=== PATIENT | female | born 1960 | race African-American/Black ===

== ENCOUNTER 2019-10-03 10:06 | Emergency (ER) | payer OTHER, SELFPAY ==
[2019-10-03 10:29] VITALS: BP 140/81; PULSE 100; RESP 16; TEMP 36.2; O2SAT 97
--- NOTE | 2019-10-03 10:34 | ED.URI ---
HPI - URI/Sore Throat General Chief Complaint: Ear Stated Complaint: Ear/Nose/Throat Time Seen by Provider: 10/03/19 10:35 Source: patient and RN notes reviewed Mode of arrival: ambulatory Limitations: no limitations History of Present Illness HPI Narrative: 59-year-old female presents with concern for bilateral ear pain, muffled hearing, sinus congestion, sinus drainage, postnasal. She denies fever, cough, shortness of breath, body aches, malaise. Reports she takes daily medications for allergies and sinus congestion, frequently has sinus congestion. Reports current 1 week history of sinus congestion. MD elicited complaint: other (Ear pain) Related Data Home Medications Medication Instructions Recorded Confirmed Advair HFA 10/03/19 albuterol sulfate [Ventolin HFA] 1 puff INHALATION QID 10/03/19 10/03/19 atorvastatin [Lipitor] 10 mg PO DAILY 10/03/19 10/03/19 fluticasone propionate [Flonase 1 spray INTRANASAL DAILY 10/03/19 10/03/19 Allergy Relief] lisinopril-hydrochlorothiazide 1 tablet PO DAILY 10/03/19 10/03/19 [Zestoretic] loratadine-pseudoephedrine 1 tablet PO DAILY 10/03/19 10/03/19 [Claritin-D 24 Hour] montelukast [Singulair] 10 mg PO DAILY 10/03/19 10/03/19 niacin 500 mg PO DAILY 10/03/19 10/03/19 Allergies Allergy/AdvReac Type Severity Reaction Status Date / Time cefprozil Allergy Unknown Verified 08/08/18 11:31 codeine Allergy Unknown Itching Verified 06/20/17 08:07 diphenhydramine Allergy Unknown Hives Verified 06/20/17 08:06 lovastatin Allergy Unknown Verified 08/08/18 11:30 metronidazole Allergy Unknown Unverified 07/21/16 14:45 niacin Allergy Unknown Verified 08/08/18 11:30 ofloxacin Allergy Unknown Verified 07/21/16 14:45 oxaprozin Allergy Unknown Verified 08/08/18 11:29 oxytetracycline Allergy Unknown Verified 08/08/18 11:30 sulfamethizole Allergy Unknown Verified 06/20/17 08:07 tetracycline Allergy Unknown Unverified 07/21/16 14:45 trimethoprim Allergy Unknown Verified 06/20/17 08:07 Review of Systems Review of Systems: Narrative: CONSTITUTIONAL: Denies malaise, chills, sweats, or fever. EYES: Denies visual changes, redness, or discharge. ENT: Reports rhinorrhea, congestion,otalgia. Denies sinus pain or sore throat. CARDIOVASCULAR: Denies chest pain, palpitations, or edema. RESPIRATORY: Denies cough or dyspnea. GASTROINTESTINAL: Denies abdominal pain, nausea, vomiting, diarrhea SKIN: Denies rash or itching. MUSCULOSKELETAL: Denies myalgia. NEUROLOGIC: Denies headache. All systems reviewed & are unremarkable except as noted in HPI and below PMFSH Social History Social History Smoking status: Never smoker Alcohol intake: never Gender identity (if verbalized by the patient): Female Comments At time of signature, agree with nursing past medical, surgical, social and family history. There is no relevant family history pertinent to the presenting complaint Exam Narrative: Exam Narrative: GENERAL: Well-appearing, well-nourished, and in no acute distress. HEAD: Normocephalic EYES: PERRLA, conjunctivae clear ENT: Nares clear, turbinates edematous and erythematous, clear discharge. Mucous membranes moist. TM pearly dominguez with dull light reflex bilaterally; no tragal tenderness. Oropharynx not erythematous without lesions. Tonsils not enlarged and without exudate, no drooling, no hoarseness, no trismus, uvula midline. NECK: Supple. No lymphadenopathy CHEST: Clear to auscultation, breath sounds equal. No wheezing, rhonchi, rales, or stridor. No respiratory distress, speaks in full sentences. HEART: Regular rate and rhythm. No murmur heard. SKIN: Warm, dry, no rash. NEURO: Alert and oriented x3. PSYCH: Normal mood and affect Course Course Emergency Course: Patient is aware of diagnosis, understands and agrees to treatment plan. Anticipatory guidance given. Patient agrees to follow-up as directed and is aware of reasons to seek care at the emergency department. Portions of this r
== END 2019-10-03 10:50 | disposition home or self-care (01) ==
PROVIDERS: Emergency Provider Nurse Practitioner; PCP Emergency Medicine
DX: J30.9 Allergic rhinitis, unspecified (principal)
CPT/HCPCS: 99213; G0463

== ENCOUNTER 2020-03-25 08:04 | Outpatient (CLI) | payer MEDICARE, SELFPAY ==
--- NOTE | ~2020-03-25 | MM_ITS ---
EXAMINATION: MM screening iris BI w meghann HISTORY: Screening TECHNIQUE: Craniocaudal and mediolateral oblique 3-D tomosynthesis images were obtained and synthetic 2-D images were generated. CAD analysis was submitted and interpreted. COMPARISON: Comparison to multiple prior studies sequentially, with oldest reviewed study dated 08/01. BREAST PARENCHYMAL COMPOSITION: The breasts are heterogeneously dense, which may obscure small masses . FINDINGS: There is no evidence of suspicious mass, calcification, or architectural distortion to sugg est malignancy in either breast. There has been no suspicious interval change. IMPRESSION: 1. No mammographic evidence of malignancy. 2. Recommend routine screening mammography in one year. BI-RADS Category 1: Negative Reviewed, dictated and finalized at location A. LAYER
== END 2020-03-25 08:05 | disposition home or self-care (01) ==
LOC: ANHIMG 08:06
PROVIDERS: PCP Emergency Medicine; Visit Provider Emergency Medicine
DX: Z12.31 Encounter for screening mammogram for malignant neoplasm of breast (principal)
CPT/HCPCS: 77063; 77067

== ENCOUNTER 2021-07-23 10:43 | Outpatient (CLI) | payer OTHER, SELFPAY ==
--- NOTE | ~2021-07-23 | XR_ITS ---
XR shoulder RT min 2V DATE: 07/23/2021 11:06 INDICATION: Right shoulder pain and popping when raising shoulder. No injury. TECHNIQUE: 4 views COMPARISON: None FINDINGS: There is calcifications along the upper aspect of the acromioclavicular joint. There is osteophytic spurring of the glenoid process and humeral head at the glenohumeral joint. No fracture, dislocation, periosteal reaction or bone destruction. No abnormal soft tissue calcificat ion of the right shoulder. IMPRESSION: Glenohumeral osteoarthritis Calcifications at the superior aspect of the right acromioclavicular joint Reviewed, dictated and finalized at location B.
== END 2021-07-23 10:44 | disposition home or self-care (01) ==
PROVIDERS: PCP Emergency Medicine; Visit Provider Emergency Medicine
DX: M19.011 Primary osteoarthritis, right shoulder (principal)
CPT/HCPCS: 73030

== ENCOUNTER 2023-03-22 11:50 | Outpatient (CLI) | payer BC, SELFPAY ==
--- NOTE | ~2023-03-22 | XR_ITS ---
XR hip RT 2V w AP pelvis DATE: 03/22/2023 12:10 INDICATION: Right hip pain lateral to groin TECHNIQUE: AP pelvis. AP and lateral views of right hip COMPARISON: None FINDINGS: There is severe right hip joint space narrowing and very prominent right acetabular and fem oral head spurring, consistent with severe osteoarthritis. Hip joint space is obliterated superolater ally. No fracture or dislocation of the right hip is evident. Normal alignment at the pubic symphysis and sacroiliac joints. No pelvic fracture or bone destruction is detected. Mild left hip osteoarthritis. Probable 8 x 10 mm calcified calculus of lower pole of left kidney. IMPRESSION: Severe right hip osteoarthritis Reviewed, dictated and finalized at location B. DER OPERATOR TOOL
== END 2023-03-22 11:51 | disposition home or self-care (01) ==
PROVIDERS: PCP Emergency Medicine; Visit Provider Emergency Medicine
DX: M16.11 Unilateral primary osteoarthritis, right hip (principal)
CPT/HCPCS: 73502

== ENCOUNTER 2023-08-10 09:36 | Outpatient (CLI) | payer BC, SELFPAY ==
--- NOTE | ~2023-08-10 | MM_ITS ---
EXAMINATION: MM screening iris BI w meghann HISTORY: Screening TECHNIQUE: Craniocaudal and mediolateral oblique 3-D tomosynthesis images were obtained and synthetic 2-D images were generated. CAD analysis was submitted and interpreted. COMPARISON: 03/25/2020 BREAST PARENCHYMAL COMPOSITION: The breasts are heterogeneously dense, which may obscure small masses . FINDINGS: There is no evidence of suspicious mass, calcification, or architectural distortion to sugg est malignancy in either breast. There has been no suspicious interval change. IMPRESSION: 1. No mammographic evidence of malignancy. 2. Recommend routine screening mammography in one year. BI-RADS Category 1: Negative Reviewed, dictated and finalized at location B.
== END 2023-08-10 09:37 | disposition home or self-care (01) ==
LOC: ANHIMG 09:37
PROVIDERS: PCP Emergency Medicine; Visit Provider Emergency Medicine
DX: Z12.31 Encounter for screening mammogram for malignant neoplasm of breast (principal)
CPT/HCPCS: 77063; 77067

== ENCOUNTER 2024-06-05 11:55 | Outpatient (CLI) | payer BC, SELFPAY ==
[2024-06-05 12:46] LABS: Alanine Aminotransferase 23 U/L (6-35); Albumin Level 4.6 g/dL (3.5-5.1); Alkaline Phosphatase 91 U/L (38-126); Anion Gap 10 mmol/L (4-12); Aspartate Amino Transferase 29 U/L (14-36); Bilirubin,Total 1.1 mg/dL (0.2-1.3); Blood Urea Nitrogen 15 mg/dL (7-17); Calcium 9.7 mg/dL (8.4-10.2); Carbon Dioxide 31 mmol/L (22-30); Chloride 98 mmol/L (98-107); Estimated Glomerular Filt Rate 51; Glucose 134 mg/dL (65-110); Potassium 3.2 mmol/L (3.4-5.0); Sodium 139 mmol/L (137-145)
[2024-06-05 12:56] LABS: Erythrocyte Sedimentation Rate 43 mm/hr (0-20)
[2024-06-05 13:12] LABS: Thyroid Stimulating Hormone Reflex 0.986 uIU/mL (0.465-4.68)
--- OUTSIDE RECORDS SUMMARY | 2024-06-05 13:16 | XMS_ITS | Clinical Summary ---
Author Organization [facility] Address [address] [place] [address] Care Team Providers Care Brick Tester Name Role Phone Canelo Stallworth MD Primary Care Provider [phone] Allergies Active Allergy Reactions Criticality Noted Date Comments Oxaprozin Hives,Shortness of Breath,Rash,Itching,Naus ea and Vomiting,Swelling High 07/29/2021 Terromycin,advicor, flagyn-floxin, cefprozil-cefzil Medications SYMBICORT 160-4.5 MCG/ACT inhaler INHALE 2 PUFFS BY MOUTH EVERY 12 HOURS 07/22/2021 Active lisinopril-hydro CHLOROthiazide 10-12.5 MG tablet Take 1 tablet by mouth daily. 07/23/2021 Active montelukast 10 MG tablet Take 10 mg by mouth every evening. 07/06/2021 Active Active Problems No known active problems Family History Medical History Relation Comments Asthma Father COPD Father Cancer Father Hypertension Mother Miscarriages / Stillbirths Sister Relation Status Comments Father Mother Sister Social History Tobacco Use Types Packs/Day Years Used Date Smoking Tobacco: Never Smokeless Tobacco: Never Tobacco Cessation:Counseling Given: No Comments:non smoker Alcohol Use Standard Drinks/Week Comments Yes 0 (1 standard drink = 0.6 oz pur e alcohol) social PHQ-2 Answer Date Recorded PHQ-2 Score - If the patient scores above 3, please move on to questions 3-9 0 09/16/2021 Comments Unknown Sex and Gender Information Value Date Recorded Sex Assigned at Not on file Legal Sex Female 4:00 PM CDT Gender Identity Not on file Sexual Orientation Not on file Last Filed Vital Signs Vital Sign Reading Time Taken Comments Blood Pressure 107/67 09/16/2021 9:13 AM CDT Pulse 91 09/16/2021 9:13 AM CDT Temperature - - Respiratory Rate - - Oxygen Saturation - - Inhaled Oxygen Concentration - - Weight 70.3 kg (155 lb) 09/16/2021 9:13 AM CDT Height 157.5 cm (5' 2 ) 09/16/2021 9:13 AM CDT Body Mass Index 28.35 09/16/2021 9:13 AM CDT Plan of Treatment Health Maintenance Due Date Last Done Comments Cervical Cancer Screening Pap Smear (Age 30 to 64) Every 3 Years 1960 Colorectal Cancer Screening Colonoscopy (10 Years) 1960 Annual Physical 07/16/1963 Hepatitis C 1978 DTaP, Tdap and Td Vaccines (1 - Tdap) 07/16/1979 Cervical Cancer Screening Pap with HPV Testing (Age 30 to 64) Every 5 Years 1990 Cervical Cancer Screening with HPV 1990 Mammogram Screening 2000 COVID-19 Vaccine (2023- season) 2023 03/03/2021, 07/08/2020, 06/17/2020 Influenza Adult (#1) 2023 12/31/2020, 01/01/2020, 12/05/2018, Additional history exists RSV Immunization or 60+ Years (1 - 1-dose 75+ series) 07/16/2035 Pneumococcal Vaccine: Pediatrics (0 to 5 Years) and At-Risk Patients (6 to 64 Years) Aged Out 12/21/2016 No longer eligible based on patient's age to complete this topic Zoster Vaccines Completed 05/26/2021, 03/23/2021 Meningococcal B Vaccine Aged Out No l onger eligible based on patient's age to complete this topic Meningococcal Vaccine Aged Out No mabel ashtyn eligible based on patient's age to complete this topic RSV Immunizations Under 20 Months Aged Out No longer eligible based on patient's age to complete this topic Insurance U[employer] Care Teams Brick Tester Relationship Specialty Start Date End Date Canelo Stallworth MD [address] [place] [address] PCP - General INTERNAL MEDICINE 07/08/21
== END 2024-06-05 11:56 | disposition home or self-care (01) ==
LOC: ANHLAB 11:56
PROVIDERS: PCP Emergency Medicine; Visit Provider Nurse Practitioner
DX: R63.4 Abnormal weight loss (principal); R19.4 Change in bowel habit; R19.7 Diarrhea, unspecified; R10.9 Unspecified abdominal pain; K62.5 Hemorrhage of anus and rectum
CPT/HCPCS: 36415; 80053; 82784; 83516; 84443; 85652; 86140

== ENCOUNTER 2024-06-05 14:29 | Outpatient (CLI) | payer BC, SELFPAY ==
[2024-06-05 15:41] LABS: Toxigenic C. Diff NEGATIVE (NEGATIVE)
--- OUTSIDE RECORDS SUMMARY | 2024-06-05 15:45 | XMS_ITS | Clinical Summary ---
Author Organization [facility] Address [address] [place] [address] Care Team Providers Care Consumer Affairs Specialist Name Role Phone Canelo Stallworth MD Primary Care Provider [phone] Allergies Active Allergy Reactions Criticality Noted Date [...] complete this topic Insurance [employer] Care Teams Consumer Affairs Specialist Relationship Specialty Start Date End Date Canelo Stallworth MD [address] [place] [address] PCP - General INTERNAL MEDICINE 07/08/21
== END 2024-06-05 14:30 | disposition home or self-care (01) ==
LOC: ANHLAB 14:30
PROVIDERS: PCP Emergency Medicine; Visit Provider Nurse Practitioner
DX: R63.4 Abnormal weight loss (principal); R19.4 Change in bowel habit; R19.7 Diarrhea, unspecified; R10.9 Unspecified abdominal pain; K62.5 Hemorrhage of anus and rectum
CPT/HCPCS: 83993; 87045; 87269; 87427; 87449; 87493

== ENCOUNTER 2024-06-06 12:36 | Inpatient (IN) | payer BC, SELFPAY ==
[2024-06-06] VITALS (19 sets, daily range): BP systolic 103–133; BP diastolic 57–74; PULSE 94–127; RESP 10–19; TEMP 36.6–37.1; O2SAT 96–100; BMI 22.5
--- NOTE | ~2024-06-06 | CT_ITS ---
CT abdomen pelvis w con Ordering provider: Carlos Enrique Woody MD History: 63 years Female with . colitis eval . Comparison: None. Technique: CT abdomen and pelvis with IV and without oral contrast. Automated exposure control and it erative reconstruction technique were employed. The dose-length product was 184.67 mGy-cm. 100 mL Omn ipaque 350 was given IV. Findings: VISUALIZED LOWER CHEST: Normal. UPPER ABDOMINAL ORGANS: Liver: Normal. Gallbladder: Normal. Spleen: Normal. Stomach/duodenum: Small sliding hiatus hernia. Pancreas: Normal. Adrenals: Normal. Kidneys: 2Stones seen in the left kidney lower pole measuring 6 mm and 5 mm. Tiny cyst in the left ki dney upper pole. Tiny stone in the right kidney upper pole. PELVIC ORGANS: The bladder is underfilled. BOWEL AND MESENTERY: Colon: Soft tissue density is seen in the rectosigmoid area which raises the possibility of a mass. T his measures 2 cm. Thickened wall involving the rectosigmoid area and with minimal surrounding fat st randing which is suggestive of colitis. The colon is loaded with fecal material. Slightly dilated col on is noted with the caliber measuring 5.7 cm.. The appendix is not well demonstrated. Slightly dilat ed structure is seen adjacent to the cecum which may be the appendix and measures 11 mm. No surroundi ng fat stranding seen. Small Bowel: No obstruction. Peritoneum/mesentery: No free air or free fluid. No mesenteric lymphadenopathy. RETROPERITONEUM: Mild atheromatous disease of the abdominal aorta. No retroperitoneal lymphadenopat hy. Lymph node is seen near to the bifurcation of the aorta measuring 1.2 cm. MUSCULOSKELETAL: Superficial soft tissues: The superficial soft tissues are normal. Bones: Age appropriate degenerative changes of the spine. Severe right hip osteoarthritic changes. IMPRESSION: 1. Highly suggestive soft tissue density seen in the rectosigmoid area. 2. Thickened wall of the rectosigmoid with minimal fat stranding suggestive of colitis. Colonoscopy advised. 3. Constipation. 4. Stones in the left kidney lower pole Reviewed, dictated and finalized at location A.
--- NOTE | ~2024-06-06 | CT_ITS ---
CT diagnostic chest w con Ordering provider: Marbin Joshi MD History: 63 years Female with . r/o metastases . Comparison: None. Technique: CT chest with IV contrast. Radiation reduction technique utilized.The dose-length product was 111.75 mGy-cm. 75 mL Omnipaque 350 was given IV. Findings: VISUALIZED THORACIC INLET: Normal. MEDIASTINUM: Aorta/coronary arteries: The thoracic aorta is normal. Heart/other: The heart is not enlarged. Lymph nodes: No mediastinal or hilar adenopathy. LUNGS: Bilateral basal atelectasis versus pneumonia more on the right side.. No pulmonary nodules or masses. . No pneumothorax. Trace of effusion seen on the right side. VISUALIZED UPPER ABDOMEN: Slidin g hiatus hernia. Minimal fluid around the spleen. Otherwise, the visualized upper abdomen is normal. MUSCULOSKELETAL: Soft tissues: The superficial soft tissues are normal. Bones: Age appropriate degenerative changes of the spine. IMPRESSION: Bilateral basal atelectasis versus pneumonia more on the right side. No definite metastatic lesions seen. Minimal fluid around the spleen. Clinical correlation advised. Reviewed, dictated and finalized at location A.
--- NOTE | ~2024-06-06 | CT_ITS ---
CT abdomen pelvis wo con Ordering provider: Marbin Joshi MD History: 63 years Female with . rule out pneumoperitoneum . Comparison: June 06, 2024 Technique: CT abdomen and pelvis with IV and without oral contrast. Automated exposure control and it erative reconstruction technique were employed. The dose-length product was 221.78 mGy-cm. 75 mL Omni paque 350 was given IV. Findings: VISUALIZED LOWER CHEST: Bilateral basal atelectasis versus pneumonia. UPPER ABDOMINAL ORGANS: Liver: Normal. Gallbladder: Normal. Spleen: Normal. Stomach/duodenum: Normal. Pancreas: Normal. Adrenals: Normal. Kidneys: Stone in the right kidney upper pole. 2 stones in the left kidney lower pole. PELVIC ORGANS: The bladder is normal. BOWEL AND MESENTERY: Colon: Thickened wall of the rectosigmoid with surrounding fat stranding is again demonstrated sugges tive of colitis. Dilated large bowel which lowers the fecal material is seen. Appendix is not demonst rated. Small Bowel: Normal. No obstruction. Peritoneum/mesentery: No free air. Minimal fluid seen in the presacral area.. No mesenteric lymphaden opathy. RETROPERITONEUM: Mild atheromatous disease of the abdominal aorta. No retroperitoneal lymphadenopat hy. MUSCULOSKELETAL: Superficial soft tissues: Small bilateral inguinal hernias seen unchanged. The superficial soft tissu es are normal. Bones: Age appropriate degenerative changes of the spine. Severe right hip osteoarthritic changes. IMPRESSION: 1. Thickened wall of the rectosigmoid colon suggestive of colitis. No significant change from previo us examination. No evidence of pneumoperitoneum seen. 2. Constipation 3. Bilateral kidney stones. Reviewed, dictated and finalized at location A. IMPRESSION: 1. Thickened wall of the rectosigmoid colon suggestive of colitis. No signific ant change from previous examination. No evidence of pneumoperitoneum seen. 2. Constipation 3. Bilateral kidney stones.
--- NOTE | ~2024-06-06 | XR_ITS ---
EXAMINATION: XR chest 2V DATE: 06/06/2024 14:33 INDICATION: Weakness. TECHNIQUE: Frontal and lateral views of the chest were obtained. COMPARISON: Chest 2 views 07/24/15 FINDINGS: There is no pneumonia, pleural effusion, or pneumothorax. The heart size is normal. IMPRESSION: 1. No acute cardiopulmonary disease. Reviewed, dictated and finalized at location A.
--- NOTE | ~2024-06-06 | MR_ITS ---
EXAMINATION: MR pelvis wo/w con DATE: 06/08/2024 10:43 INDICATION: Rectal mass. TECHNIQUE: Magnetic resonance imaging (MRI) of the pelvis was performed without and with 11 mL ProHan ce intravenous contrast. COMPARISON: CT abdomen and pelvis 06/07/2024, 06/06/2024 FINDINGS: The colon is distended. In the rectum, there is a 6.0 x 4.0 cm mass that extends anteriorly to abut t he uterus and right ovary. There is nodular thickening of the mesorectal fascia. The inferior edge of the tumor measures 7.2 cm from the anal verge. There is a 9 x 6 mm perirectal lymph node. There is a small volume of ascites. There is ascites in a right inguinal hernia. There are multiple fibroids in uterus measuring up to 15 mm. IMPRESSION: 1. Rectal mass, consistent with primary malignancy, at least T4a. 2. Enlarged perirectal lymph node, consistent with metastatic disease. 3. Small volume of ascites. 4. Colonic obstruction from the rectal mass. Reviewed, dictated and finalized at location A.
--- OUTSIDE RECORDS SUMMARY | 2024-06-06 13:19 | XMS_ITS | Clinical Summary ---
Author Organization [facility] Address [address] [place] [address] Care Team Providers Care Air Battle Manager Name Role Phone Canelo Stallworth MD Primary Care Provider [phone] Allergies Active Allergy Reactions Criticality Noted Date [...] complete this topic Insurance [employer] Care Teams Air Battle Manager Relationship Specialty Start Date End Date Canelo Stallworth MD [address] [place] [address] PCP - General INTERNAL MEDICINE 07/08/21
--- NOTE | 2024-06-06 14:05 | ECG_ITS ---
Test Date: 2024-06-06 14:10:25 Measurements Intervals Bitely Rate: 105 P: 79 MO: 145 QRS: 59 QRSD: 76 T: 69 QT: 321 QTc: 424 Interpretive Statements SINUS TACHYCARDIA POSSIBLE LEFT ATRIAL ENLARGEMENT [-0.1mV P-WAVE IN V1/V2] ABNORMAL RHYTHM ECG No previous ECG available for comparison Electronically Signed On 06-06-2024 14:43:05 CDT by Jose Munson M.D.
[2024-06-06 14:22] LABS: Basophils Percent Auto 0.3 % (0.2-1.2); Hematocrit 43.5 % (37.0-47.0); Immature Granulocyte Absolute 0.05 K/mm3 (0.00-0.031); Immature Granulocyte Percent A 0.4 % (0-0.5); Lymphocytes Absolute Auto 0.81 K/mm3 (0.9-3.2); Lymphocytes Percent Auto 6.1 % (18.3-44.2); Mean Corpuscular HGB Conc 32.2 g/dl (32-36); Mean Corpuscular Hemoglobin 30.4 pg (26-34); Mean Corpuscular Volume 94.6 fl (80-100); Monocytes Absolute Auto 1.4 K/mm3 (0.1-0.6); Monocytes Percent Auto 10.6 % (2.6-8.5); Neutrophils Percent Auto 82.6 % (45.5-73.1); Platelet Count Result 478 k/mm3 (150-375); Red Cell Distribution Width 12.8 % (11.5-14.5); White Blood Count 13.3 K/mm3 (4.5-10.0)
[2024-06-06 14:39] LABS: Alanine Aminotransferase 22 U/L (6-35); Albumin Level 4.5 g/dL (3.5-5.1); Alkaline Phosphatase 94 U/L (38-126); Anion Gap 17 mmol/L (4-12); Aspartate Amino Transferase 24 U/L (14-36); Bilirubin,Total 1.1 mg/dL (0.2-1.3); Blood Urea Nitrogen 32 mg/dL (7-17); Calcium 9.6 mg/dL (8.4-10.2); Carbon Dioxide 25 mmol/L (22-30); Chloride 98 mmol/L (98-107); Estimated CRCL calculation 29 ml/min; Estimated Glomerular Filt Rate 38; Glucose 170 mg/dL (65-110); Potassium 3.7 mmol/L (3.4-5.0); Sodium 140 mmol/L (137-145)
[2024-06-06] MEDS: LACTATED RINGERS 1,000 ML 999 ML IV CONT ×2 (15:02→16:33)
[2024-06-06 16:02] LABS: Add Urine Microscopic? YES; Appearance Urine Clear (Clear); Bacteria Urine None Seen /hpf; Bilirubin Urine 2+ (Negative); Blood Urine Negative (Negative); Color Urine Dark Yellow (Yellow); Glucose Urine UA Negative (Negative); Ketones Urine Negative (Negative); Leukocyte Esterase Ur Negative LEU/UL (Negative); Nitrate Urine Negative (Negative); Non Pathogenic Casts 0-2; Protein Urine Trace mg/dL (Negative); RBC Urine 0-2 /hpf (0-2); Specific Grav Ur > 1.045 (1.001-1.035); Squamous Epithelial Cell Urine Occasional /hpf (Few); WBC Urine 0-5 /hpf (0-3); pH Urine 5.5 (5.0-9.0)
--- OUTSIDE RECORDS SUMMARY | 2024-06-06 16:13 | XMS_ITS | Continuity of Care Document ---
Author Organization [facility] Address [address] [place] [address] [place] [phone] Phone Care Team Providers Care Patent Litigation Associate Name Role Phone Cain Morel Unavailable Unavailable Procedures Procedure Date Therapeutic Activities Therapeutic Exercise Hot or Cold Pack Neuromuscular Re-Ed Therapeutic Activities Progress Note Neuromuscular Re-Ed Therapeutic Exercise Hot or Cold Pack Neuromuscular Re-Ed Therapeutic Activities Therapeutic Exercise Manual Therapy Hot or Cold Pack Therapeutic Activities Neuromuscular Re-Ed Therapeutic Exercise Hot or Cold Pack Therapeutic Activities Therapeutic Exercise Neuromuscular Re-Ed Hot or Cold Pack Therapeutic Activities Neuromuscular Re-Ed Hot or Cold Pack Therapeutic Exercise Therapeutic Exercise Neuromuscular Re-Ed Therapeutic Activities Hot or Cold Pack Manual Therapy Therapeutic Activities Neuromuscular Re-Ed Therapeutic Exercise Hot or Cold Pack Therapeutic Activities Therapeutic Exercise Neuromuscular Re-Ed Hot or Cold Pack Neuromuscular Re-Ed Therapeutic Activities Hot or Cold Pack OT Evaluation Low Complexity Therapeutic Activities Therapeutic Exercise Neuromuscular Re-Ed Hot or Cold Pack Advance Directives Directive Yes / No Effective Date File Name No Information Encounters Encounter Description Practice Location Reason(s) For Visit Diagnoses Date Provider Providers Copied on Encounter [facility], [id number], tel:[phone] [place] No Information 2 Talavera Cain. . [facility], [id number], tel:[phone] [place] No Information 2 Talavera Cain. . Referring Provider: [place], [address]. tel:[phone] [facility], [id number], tel:[phone] [place] No Information 2 Talavera Cain. . Referring Provider: [place], [address]. tel:[phone] [facility] [address], [id number], tel:[phone] [place] No Information 2 Talavera Cain. . Referring Provider: [place], [address]. tel:[phone] [facility], [id number], tel:[phone] [place] No Information 2 Talavera Cain. . Referring Provider: [place], [address]. tel:[phone] [facility] [address] [facility], [place], [place], [id number], [place] tel:[phone] [place] [address] No Information Ted-2 0-202 2 Talavera Cain. . Referring Provider: Clarita Zamorano, [place], [address]. tel:[phone] [facility], [place], [place], [id number], [place] tel:[phone] [place] [address] No Information Ted-1 5-202 2 Talavera Cain. . Referring Provider: Clarita Zamorano, [place], [address]. tel:[phone] [facility] [address] [address], [place], [place], [id number], [place] tel:[phone] [place] [address] No Information Ted-1 3-202 2 Talavera Cain. . Referring Provider: Clarita Zamorano, [place], [address]. tel:[phone] [facility] [address] [facility], [place], [place], [id number], [place] tel:[phone] [place] No Information Ted-0 8-202 2 Talavera Cain. . Referring Provider: Clarita Zamorano, [place], [address]. tel:[phone] [facility] [address], [place], [place], [id number], [place] tel:[phone] [place] No Information Ted-0 6-202 2 Talavera Cain. . Referring Provider: [place], [address]. tel:[phone] [facility], [place], [place], [id number], [place] tel:[phone] [place] No Information Ted-0 1-202 2 Ilan Barlow. . Referring Provider: Jeremie Connolly, [place], [address]. tel:[phone] [facility] [place], [address] [facility] [address], [place], [place], [id number], tel:[phone] [place] No Information 2 Ilan Barlow. . Referring Provider: [place], [address]. tel:[phone] Family History Family Member Type Diagnosis Age At Onset No Information Payers Payer name Insurance type Covered republican ID Brandon palomares(s) All Savers [id number] Social History Type Description Quantity Date Captured Comments Sex Female Smoking Status No Information Chief Complaint And Reason For Visit No Information Reason For Referral Reason For Referral No Information History Of Present Illness Encounter Date Complaint History Of Prese nt Illness No Information Functional Status Date Functional Assessmen t No Information Instructions Date Instruction Additional Infor huaion Prescribed activity/exercise edu cation Related to Overweight Dietary needs education Related to Overweight Assessments Type Assessment Date No Information Patient Care Teams Name Effective Dates (start - stop) Status Members No Information
--- OUTSIDE RECORDS SUMMARY | 2024-06-06 16:13 | XMS_ITS | Clinical Summary ---
Author Organization [facility] Address [address] [place] [address] Care Team Providers Care Pit Worker Power Shovel Name Role Phone Canelo Stallworth MD Primary Care Provider [phone] Allergies Active Allergy Reactions Criticality Noted Date [...] complete this topic Insurance [employer] Care Teams Pit Worker Power Shovel Relationship Specialty Start Date End Date Canelo Stallworth MD [address] [place] [address] PCP - General INTERNAL MEDICINE 07/08/21
[2024-06-06] MEDS: ONDANSETRON INJ 4 MG/2 ML VIAL IV PUSH (16:14)
[2024-06-06] MEDS: MORPHINE SULFATE (*CRX) 4 MG/ML INJ IV PUSH ×2 (16:15→20:21)
--- NOTE | 2024-06-06 16:19 | ED.WEAKNESS ---
HPI - Weakness General Chief complaint: Weakness Stated complaint: weakness Time Seen by Provider: 06/06/24 14:44 History of Present Illness HPI Narrative: 63-year-old female presenting to the emergency department for evaluation of abdominal pain, abdominal cramping, diarrhea. She was seen by her GI specialist yesterday and prescribed azithromycin for suspected colitis. She was told to return to the hospital if she has any worsening symptoms and came to the ER today. She states she has been nauseous in feeling worsening abdominal cramping. Focally in her left lower quadrant. No recent abdominal surgeries. She has a history of colitis in childhood which resolved with brief steroids. No history of ulcer colitis or IBD according to her. She was otherwise in her normal state of health. No chest pain shortness a breath. No fever chills. No back pain. Related Data Allergies Allergy/AdvReac Type Severity Reaction Status Date / Time cefprozil Allergy Unknown unknown Verified 06/05/24 10:56 codeine Allergy Unknown Itching Verified 06/05/24 10:56 diphenhydramine Allergy Unknown Hives Verified 06/05/24 10:56 lovastatin Allergy Unknown unknown Verified 06/05/24 10:56 metronidazole Allergy Unknown unknown Verified 06/05/24 10:56 niacin Allergy Unknown unknown Verified 06/05/24 10:56 ofloxacin Allergy Unknown unknown Verified 06/05/24 10:56 oxaprozin Allergy Unknown unknown Verified 06/05/24 10:56 oxytetracycline Allergy Unknown unknown Verified 06/05/24 10:56 sulfamethizole Allergy Unknown unknown Verified 06/05/24 10:56 tetracycline Allergy Unknown unknown Verified 06/05/24 10:56 trimethoprim Allergy Unknown unknown Verified 06/05/24 10:56 Review of Systems Review of Systems: As reviewed above in HPI [facility] Past Medical History Medical History Uncomplicated asthma Sprain of left ankle Seasonal allergic rhinitis Left otitis media Fatigue Acute sinusitis Dysuria Vitamin D deficiency URI, acute 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 Mild intermittent asthma without complication History of colon polyps Earache on left Bronchitis Benign essential hypertension Abnormal LFTs Acute right hip pain Sinusitis UTI (urinary tract infection) Dysuria Shoulder pain URI with cough and congestion HTN (hypertension) Family History Family History Father Hypertension Family history of chronic obstructive pulmonary disease Colon polyp Family history of heart disease in male family member before age 55 Family history of cardiovascular disease Mother Hypertension Patient's mother is in good health Grandparent Hypertension Social History Social History Smoking status: Never smoker Alcohol intake: never Substance use: never Do You Feel Safe in your Home?: Yes Lack of Transportation: No Lack of Food: Never True Current Housing: I Have Housing Concerned About Future Housing: No Difficulty Paying Gas/Electric Bills: No Difficulty Paying for Meds: No Currently Unemployed: No Education: Associate Degree Difficulty w/ Childcare or Family Care: No Gender identity (if verbalized by the patient): Female Spiritual care concerns: No Exam Narrative: GENERAL: [Well-appearing, well-nourished, and in no acute distress.] HEAD: [Normocephalic, atraumatic.] EYES: [PERRLA and EOMI.] ENT: Nares clear, no rhinorrhea or epistaxis. Mucous membranes moist. NECK: Supple. CHEST: [Clear to auscultation. No respiratory distress.] HEART: [Regular rate and rhythm]. No murmur heard. [Normal peripheral pulses.] ABDOMEN: [Soft, nondistended], tenderness to palpation more localized to left lower quadrant. No rebound or guarding, no signs of peritonitis, no overlying skin changes or palpable masses. EXTREMITIES: Normal range of motion. [No edema.] SKIN: Warm, dry, no rash. NEURO: [No focal deficits]. Alert and oriented [x3.] PSYCH: [Normal mood and affect.] Course Vital Signs Vital signs: Vital Signs Temperature 36.6 C 06/06/24 13:00 Pulse Rate 127 H 06/06/24 13:00 Respiratory Rate 18 06/06/24 13:00 Blood Pressure 103/74 06/06/24 13:00 Pulse Oximetry 98 06/06/24 13:00 Oxygen Delivery Room Air 06/06/24 13:00 Temperature 37.1 C 06/06/24 19:50 Pulse Rate 105 H 06/06/24 19:50 Respiratory Rate 17 06/06/24 19:50 Blood Pressure 125/60 06/06/24 19:50 Pulse Oximetry 100 06/06/24 19:50 Oxygen Delivery Room Air 06/06/24 13:00 MDM - Weakness MDM Narrative Medical decision making narrative: 63-year-old female presenting for evaluation of abdominal pain with diarrhea and abdominal cramping. She reports nauseousness. She was seen by GI yesterday with instructions to complete a course of antibiotics for suspected colitis potentially inflammation versus infection. She has a history of colitis in childhood 18 19 that was resolved with anti-inflammatory control but she has no diagnosed history of UC or inflammatory bowel disease. She has a soft nondistended abdomen but is tender to palpation in the lower quadrants more so on the left side. She is slightly tachycardic but does appear slightly dry. No fever or hypoxia. No significant blood pressure elevations or hypotension. Suspicion presently is for gastroenteritis, gastritis, colitis, cancerous process not excluded. Inflammatory process such as inflammatory bowel disease also possible. Blood work was obtained, lactic acid drawn, CT of the abdomen pelvis with contrast ordered. She was given fluid resuscitation, Zofran and morphine for analgesia. Workup reveals a leukocytosis of 13.3, normal hemoglobin, slightly elevated platelets. Electrolytes largely unremarkable but she does have a minor OCTAVIO with elevated BUN and creatinine likely from dehydration and diarrheal illness with volume loss. She was provided fluid resuscitation for this. Negative lactic acid, glucose mildly elevated but not significant. Normal LFTs. Urinalysis without signs of infection. Patient had stool cultures and stool studies done yesterday negative C difficile panel. Chest x-ray shows no acute cardiopulmonary disease. CT scan shows thickened wall in the rectosigmoid area with fat stranding suggestive of colitis as well as a soft tissue density in the rectosigmoid area suspicious for mass. Colonoscopy advised. I discussed the case with the on-call GI doctor Madelyn who will evaluate the patient during admission for suspected mass and colitis and potential colonoscopy during admission. Patient was given additional fluids and safe for admission at this time. Discussed this with the patient and family and they were comfortable with admission. Awaiting hospitalist discussion at this time. Spoke to the hospitalist who accepted the patient to a hospital bed at this time with office rep given her elevated heart rate. Patient and family updated. Medical Records Attestation: I reviewed the patient's medical records. Lab Data Attestation: I reviewed the patient's lab results. 06/06/24 14:14 06/06/24 14:14 Labs: Lab Results 06/06/24 06/06/24 06/06/24 Range/Units 14:14 15:34 15:50 WBC 13.3 H (4.5-10.0) K/mm3 RBC 4.60 (4.2-5.4) M/mm3 Hgb 14.0 (12.0-15.0) g/dL Hct 43.5 (37.0-47.0) % MCV 94.6 (80-100) fl MCH 30.4 (26-34) pg MCHC 32.2 (32-36) g/dl RDW 12.8 (11.5-14.5) % Plt Count 478 H (150-375) k/mm3 MPV 9.0 (7.4-10.4) fl Immature Gran % (Auto) 0.4 (0-0.5) % Neut % (Auto) 82.6 H (45.5-73.1) % Lymph % (Auto) 6.1 L (18.3-44.2) % [place] % (Auto) 10.6 H (2.6-8.5) % Eos % (Auto) 0.0 (0-4.4) % Baso % (Auto) 0.3 (0.2-1.2) % Lymph # (Auto) 0.81 L (0.9-3.2) K/mm3 [place] # (Auto) 1.4 H (0.1-0.6) K/mm3 Eos # (Auto) 0.0 (0-0.3) K/mm3 Baso # (Auto) 0.0 (0.0-0.1) K/mm3 Abs Immat Gran (auto) 0.05 H (0.00-0.031) K/mm3 Absolute Neuts (auto) 11.0 H (1.3-6.7) K/mm3 Absolute Nucleated RBC 0.000 (0.0-0.012) K/mm3 Nucleated RBC % 0.0 (0.0-0.2) % Sodium 140 (137-145) mmol/L Potassium 3.7 (3.4-5.0) mmol/L Chloride 98 (98-107) mmol/L Carbon Dioxide 25 (22-30) mmol/L Anion Gap 17 H (4-12) mmol/L BUN 32 H D (7-17) mg/dL Creatinine 1.40 H (0.7-1.0) mg/dL Estim Creat Clear Calc 29 ml/min Estimated GFR 38 L (59 - ) Glucose 170 H (65-110) mg/dL Lactic Acid 2.0 (0.7-2.0) mmol/L Calcium 9.6 (8.4-10.2) mg/dL Total Bilirubin 1.1 (0.2-1.3) mg/dL AST 24 (14-36) U/L ALT 22 (6-35) U/L Alkaline Phosphatase 94 (38-126) U/L Total Protein 8.0 (6.3-8.2) g/dL Albumin 4.5 (3.5-5.1) g/dL Urine Color Dark yellow (Yellow) Urine Appearance Clear (Clear) Urine pH 5.5 (5.0-9.0) Ur Specific [place] > 1.045 H (1.001-1.035) Urine Protein Trace (Negative) mg/dL Urine Glucose (UA) Negative (Negative) mg/dL Urine Ketones Negative (Negative) mg/dL Ur Blood (Man) Negative (Negative) Urine Nitrate Negative (Negative) Urine Bilirubin 2+ H (Negative) Urine Urobilinogen 1.0 (<2.0) mg/dL Leukocyte Esterase Rfl Negative (Negative) RAMY/UL Urine RBC 0-2 (0-2) /hpf Urine WBC 0-5 (0-3) /hpf Ur Squamous Epith Cells Occasional (Few) /hpf Urine Bacteria None seen /hpf Urine Casts 0-2 Imaging Data Attestation: I personally reviewed and interpreted this imaging study as follows: My impression: Impressions Chest X-Ray 06/06/24 14:34 IMPRESSION: 1. No acute cardiopulmonary disease. Abdomen/Pelvis CT 06/06/24 15:17 IMPRESSION: 1. Highly suggestive soft tissue density seen in the rectosigmoid area. 2. Thickened wall of the rectosigmoid with minimal fat stranding suggestive of colitis. Colonoscopy advised. 3. Constipation. 4. Stones in the left kidney lower pole Critical Care Time Critical Care Time Critical Care Time: Yes Total Critical Care Time: 35 Discharge Plan Discharge Clinical Impression: Colitis, Colon abnormality, Diarrhea, Dehydration Patient Disposition: Still a Patient Condition: Stable
--- NOTE | 2024-06-06 18:13 | ADMGEN ---
This patient, Whit Noe, was admitted to Medical Room 243-01. Patient/family oriented to hospital policies and general routines including ID bracelet, bed and alarms, visiting hours, pain management, procedures, bathroom and other care routines, personal items, smoking policy, room service/diet, and visiting hours. Information on how to activate the Rapid Response Team has been discussed. Patient/Family are encouraged to report perceived risks to care and to ask questions if they do not understand what they are told or what they should do.
[2024-06-06] MEDS: LACTATED RINGERS 1,000 ML 125 ML IV CONT (18:38)
--- NOTE | 2024-06-06 18:56 | P.HP_ITS ---
H&P: HPI History of Present Illness Date/Time: 06/06/24 18:56 Chief Complaint: Weakness, N/V Narrative: 63 y/o F with no significant PMH presents here with generalized weakness, nausea, vomiting, and weight loss. The patient presents here from home for further evaluation of generalized weakness, abdominal pain, nausea, vomiting, and weight loss. She reports she initially developed lower abdominal pain in Feb. Pain was crampy and she thought this was indicative that she needed to go to the restroom but would be unable to. She began having semi formed stools around similar time. March the patient saw her PCP who diagnosed her with gastroenteritis. Patient then began losing weight starting mid March. Currently has lost a total of 20 lbs. Then in April she developed light red mucus like stool, more of a liquid consistency and stool had flecks of black. PCP then referred her to GI who she was able to see yesterday. Lab work and stool studies were performed and patient had planned outpatient CT for early June. Now presenting today due to the severity of her weakness and the abdominal pain had become more severe. She was unable to get out of bed or get to work. Last colonoscopy in 2019 - two polyps removed, benign. She was told to repeat in 5 years. FH of cancer - mother had uterine cancer. Initial VS at presentation: 97.9 ? F, HR 127, RR 18, 103/74, and 98% on room air ED workup showed: WBC 13.3, no anemia, creatinine 1.4 and GFR 38, UA showed high specific gravity and 2+ bilirubin. CXR showed no acute cardiopulmonary disease. CT abdomen/pelvis showed highly suggest a soft tissue density seen in the rectosigmoid area, thickened wall the rectosigmoid with minimal fat stranding suggestive of colitis, constipation, stones in the left kidney lower pole. Review of Systems Review of Systems: All systems reviewed & are unremarkable except as noted in HPI and below [facility] Past Medical History Medical History (Updated 06/06/24 @ 23:29 by Lu Watts APRN) Uncomplicated asthma Sprain of left ankle Seasonal allergic rhinitis Fatigue Vitamin D deficiency Skin tag On retirement drug therapy Mild intermittent asthma without complication History of colon polyps Bronchitis Abnormal LFTs UTI (urinary tract infection) Shoulder pain HTN (hypertension) Family History Family History Father Hypertension Family history of chronic obstructive pulmonary disease Colon polyp Family history of heart disease in male family member before age 55 Family history of cardiovascular disease Mother Hypertension Patient's mother is in good health Grandparent Hypertension Social History Social History Smoking status: Never smoker Alcohol intake: never Substance use: never Do You Feel Safe in your Home?: Yes Lack of Transportation: No Lack of Food: Never True Current Housing: I Have Housing Concerned About Future Housing: No Difficulty Paying Gas/Electric Bills: No Difficulty Paying for Meds: No Currently Unemployed: No Education: Associate Degree Difficulty w/ Childcare or Family Care: No Gender identity (if verbalized by the patient): Female Spiritual care concerns: No Meds Home Medications and Allergies Home Medications ?Medication ?Instructions ?Recorded ?Confirmed ?Type cyclobenzaprine 10 mg tablet 10 mg PO TID PRN muscle spasm #21 03/22/23 06/06/24 Rx tabs atorvastatin 10 mg tablet 10 mg PO DAILY #90 tabs 11/21/23 06/06/24 Rx lisinopril 10 See Rx Instructions .Route 11/21/23 06/06/24 Rx mg-hydrochlorothiazide 12.5 mg .COMPLEX #90 tabs tablet montelukast 10 mg tablet See Rx Instructions .Route 11/21/23 06/06/24 Rx .COMPLEX #90 tabs budesonide-formoterol HFA 160 2 puff inhalation Q12H #10.2 grams 04/02/24 06/06/24 Rx mcg-4.5 mcg/actuation aerosol inhaler (Breyna) azithromycin 500 mg tablet 500 mg PO DAILY 3 days #3 tabs 06/05/24 06/06/24 Rx dicyclomine 10 mg capsule 10 mg PO QID PRN abdominal pain 06/05/24 06/06/24 Rx #120 caps potassium chloride 20 mEq 20 meq PO BID #6 tabs 06/06/24 06/06/24 Rx tablet,extended release (K-Tab) Allergies Allergy/AdvReac Type Severity Reaction Status Date / Time cefprozil Allergy Unknown unknown Verified 06/05/24 10:56 codeine Allergy Unknown Itching Verified 06/05/24 10:56 diphenhydramine Allergy Unknown Hives Verified 06/05/24 10:56 lovastatin Allergy Unknown unknown Verified 06/05/24 10:56 metronidazole Allergy Unknown unknown Verified 06/05/24 10:56 niacin Allergy Unknown unknown Verified 06/05/24 10:56 ofloxacin Allergy Unknown unknown Verified 06/05/24 10:56 oxaprozin Allergy Unknown unknown Verified 06/05/24 10:56 oxytetracycline Allergy Unknown unknown Verified 06/05/24 10:56 sulfamethizole Allergy Unknown unknown Verified 06/05/24 10:56 tetracycline Allergy Unknown unknown Verified 06/05/24 10:56 trimethoprim Allergy Unknown unknown Verified 06/05/24 10:56 Vital Signs Vital Signs - 24 hr 06/06/24 13:00 06/06/24 14:02 06/06/24 14:03 Temperature 97.9 F Pulse Rate 127 H 109 H 106 H Respiratory Rate 18 11 L 12 Blood Pressure 103/74 109/68 Pulse Oximetry 98 96 Oxygen Delivery Room Air 06/06/24 14:18 06/06/24 14:19 06/06/24 14:32 Temperature Pulse Rate 102 H 103 H 107 H Respiratory Rate 15 19 18 Blood Pressure 106/74 Pulse Oximetry 99 100 99 Oxygen Delivery 06/06/24 14:45 06/06/24 15:12 06/06/24 15:13 Temperature Pulse Rate 104 H 105 H 103 H Respiratory Rate 15 10 L 15 Blood Pressure 133/57 L Pulse Oximetry 99 99 98 Oxygen Delivery 06/06/24 15:15 06/06/24 15:16 06/06/24 15:30 Temperature Pulse Rate 104 H 103 H 103 H Respiratory Rate 15 15 17 Blood Pressure 122/65 Pulse Oximetry 99 99 99 Oxygen Delivery 06/06/24 15:33 06/06/24 16:00 06/06/24 16:30 Temperature Pulse Rate 108 H 99 102 H Respiratory Rate 17 15 14 Blood Pressure 124/73 119/63 Pulse Oximetry 100 98 100 Oxygen Delivery 06/06/24 16:31 06/06/24 16:45 06/06/24 16:46 Temperature Pulse Rate 101 H 94 96 Respiratory Rate 13 13 16 Blood Pressure 121/62 Pulse Oximetry 99 99 98 Oxygen Delivery Exam Const: General: comfortable and no acute distress Other: , female, thin, nontoxic appearance HENMT: Face/Nose/Sinus: Normal nares present Mouth: Yes moist mucous membranes Eyes: General: appearance normal, both eyes and all related structures Sclera: sclerae normal Pupils: Equal, round and reactive pupils present EOM: EOMs intact bilaterally Resp: Effort & Inspection: normal respiratory effort Auscultation: clear to auscultation bilaterally Cardio: Rate: regular rate Rhythm: regular rhythm GI: Other: Abdomen nondistended, significantly tender limiting exam, normoactive bowel sounds in all quadrants. Skin: General skin exam: normal color and no rashes or lesions noted Wounds: no wounds Neuro: Speech: normal speech Motor exam (neuro): 5/5 motor strength present throughout Sensory Exam: normal sensation Other: S1-S2 present without murmur, rub, ectopy Extrem: General: normal to inspection Psych: Mental Status: mental status grossly normal Affect: normal affect Other: Good insight and judgment, pleasant H&P: Results Labs Labs: Short CBC 06/06/24 Range/Units 14:14 WBC 13.3 H (4.5-10.0) K/mm3 Hgb 14.0 (12.0-15.0) g/dL Hct 43.5 (37.0-47.0) % Plt Count 478 H (150-375) k/mm3 BMP 06/06/24 14:14 Sodium 140 Potassium 3.7 Chloride 98 Carbon Dioxide 25 BUN 32 H D Creatinine 1.40 H Glucose 170 H Calcium 9.6 Liver Function 06/06/24 Range/Units 14:14 Total Bilirubin 1.1 (0.2-1.3) mg/dL AST 24 (14-36) U/L ALT 22 (6-35) U/L Alkaline Phosphatase 94 (38-126) U/L Albumin 4.5 (3.5-5.1) g/dL Urine 06/06/24 Range/Units 15:50 Urine Color Dark yellow (Yellow) Urine Appearance Clear (Clear) Urine pH 5.5 (5.0-9.0) Ur Specific [place] > 1.045 H (1.001-1.035) Urine Protein Trace (Negative) mg/dL Urine Glucose (UA) Negative (Negative) mg/dL Assessment and Plan Assessment and plan (1) Colitis: Code(s): K52.9 - Noninfective gastroenteritis and colitis, unspecified Status: Acute Assessment and Plan: - CT abdomen/pelvis: 1. Highly suggestive soft tissue density seen in the rectosigmoid area. 2. Thickened wall of the rectosigmoid with minimal fat stranding suggestive of colitis. Colonoscopy advised. 3. Constipation. 4. Stones in the left kidney lower pole - no anemia on lab work - GI consulted, Madelyn provided the following recs: Clinical and radiological picture suggestive of chronic colitis, most likely IBD. NSAIDs could be an exacerbating factor. Differential also includes colonic mass, thought to be less likely Plan for colonoscopy tomorrow, further plan of care pending results - IV fluids (2) Colon abnormality: Code(s): K63.9 - Disease of intestine, unspecified Status: Acute Assessment and Plan: - see above (3) HTN (hypertension): Qualifiers: Hypertension type: essential hypertension Qualified Code(s): I10 - Essential (primary) hypertension Code(s): I10 - Essential (primary) hypertension Status: Acute Assessment and Plan: - chronic, currently 125/60 - continue home medications: Lisinopril-hydrochlorothiazide - monitor Plan Diet: Clear liquid, NPO at midnight GI Prophylaxis: Not currently indicated DVT Prophylaxis: SCDs Lines: Peripheral Code Status: Full code Quality VTE Prophylaxis VTE prophylaxis: mechanical ordered Hospitalist MIPS Advance Care Plan I have confirmed that the patient's Advanced Care Plan is present, code status is documented, or surrogate decision maker is listed in patient medical record.: Yes Medication Reconciliation I have utilized all available resources to obtain, update and review the patients current medications (includes all prescriptions, OTC, herbals, cannabis, and nutritional supplements).: Yes
--- NOTE | 2024-06-06 19:02 | WPDGICN ---
Assessment and Plan Assessment and plan (1) Diarrhea: Code(s): R19.7 - Diarrhea, unspecified Status: Acute Assessment and Plan: The patient's clinical and radiologic picture are very suggestive of chronic colitis, most likely inflammatory bowel disease. NSAIDs can be an exacerbating factor. Differential diagnosis includes colonic mass, although this is less likely. Will perform colonoscopy tomorrow and guide therapy according to results. GI Consult Note Consult date/time: 06/06/24 19:02 Reason for consult: Chronic diarrhea-weight loss HPI: Whit Noe, a 63-year-old female with a history of colitis diagnosed at age 18 and treated with prednisone, presented to the emergency department due to increasing severity of gastrointestinal symptoms. She reported the onset of frequent, small-volume diarrhea (6-8 episodes daily) in early February 2024, characterized by mucus and red blood. These symptoms significantly impacted her sleep and were associated with crampy lower abdominal pain and urgency. She had been using loperamide prn for symptomatic relief and ibuprofen for headaches. Outpatient blood and stool studies had been ordered but were not yet available. An emergency department CT scan demonstrated colonic wall thickening, raising suspicion for colitis. More importantly, she has lost significant amount of weight, from 138-117 lb in 4 months. Review of Systems Review of Systems: All systems reviewed & are unremarkable except as noted in HPI and below PMFSH Past Medical History Medical History Uncomplicated asthma Sprain of left ankle Seasonal allergic rhinitis Left otitis media Fatigue Acute sinusitis Dysuria Vitamin D deficiency URI, acute Skin tag On technical advisor drug therapy Mild intermittent asthma without complication History of colon polyps Earache on left Bronchitis Benign essential hypertension Abnormal LFTs Acute right hip pain Sinusitis UTI (urinary tract infection) Dysuria Shoulder pain URI with cough and congestion HTN (hypertension) Family History Family History Father Hypertension Family history of chronic obstructive pulmonary disease Colon polyp Family history of heart disease in male family member before age 55 Family history of cardiovascular disease Mother Hypertension Patient's mother is in good health Grandparent Hypertension Social History Social History Smoking status: Never smoker Alcohol intake: never Substance use: never Do You Feel Safe in your Home?: Yes Lack of Transportation: No Lack of Food: Never True Current Housing: I Have Housing Concerned About Future Housing: No Difficulty Paying Gas/Electric Bills: No Difficulty Paying for Meds: No Currently Unemployed: No Education: Associate Degree Difficulty w/ Childcare or Family Care: No Gender identity (if verbalized by the patient): Female Spiritual care concerns: No Meds Home Medications and Allergies Home Medications ?Medication ?Instructions ?Recorded ?Confirmed ?Type cyclobenzaprine 10 mg tablet 10 mg PO TID PRN muscle spasm #21 03/22/23 06/06/24 Rx tabs atorvastatin 10 mg tablet 10 mg PO DAILY #90 tabs 11/21/23 06/06/24 Rx lisinopril 10 See Rx Instructions .Route 11/21/23 06/06/24 Rx mg-hydrochlorothiazide 12.5 mg .COMPLEX #90 tabs tablet montelukast 10 mg tablet See Rx Instructions .Route 11/21/23 06/06/24 Rx .COMPLEX #90 tabs budesonide-formoterol HFA 160 2 puff inhalation Q12H #10.2 grams 04/02/24 06/06/24 Rx mcg-4.5 mcg/actuation aerosol inhaler (Breyna) azithromycin 500 mg tablet 500 mg PO DAILY 3 days #3 tabs 06/05/24 06/06/24 Rx dicyclomine 10 mg capsule 10 mg PO QID PRN abdominal pain 06/05/24 06/06/24 Rx #120 caps potassium chloride 20 mEq 20 meq PO BID #6 tabs 06/06/24 06/06/24 Rx tablet,extended release (K-Tab) Allergies Allergy/AdvReac Type Severity Reaction Status Date / Time cefprozil Allergy Unknown unknown Verified 06/05/24 10:56 codeine Allergy Unknown Itching Verified 06/05/24 10:56 diphenhydramine Allergy Unknown Hives Verified 06/05/24 10:56 lovastatin Allergy Unknown unknown Verified 06/05/24 10:56 metronidazole Allergy Unknown unknown Verified 06/05/24 10:56 niacin Allergy Unknown unknown Verified 06/05/24 10:56 ofloxacin Allergy Unknown unknown Verified 06/05/24 10:56 oxaprozin Allergy Unknown unknown Verified 06/05/24 10:56 oxytetracycline Allergy Unknown unknown Verified 06/05/24 10:56 sulfamethizole Allergy Unknown unknown Verified 06/05/24 10:56 tetracycline Allergy Unknown unknown Verified 06/05/24 10:56 trimethoprim Allergy Unknown unknown Verified 06/05/24 10:56 Vital Signs Vital Signs - 24 hr 06/06/24 13:00 06/06/24 14:02 06/06/24 14:03 Temperature 97.9 F Pulse Rate 127 H 109 H 106 H Respiratory Rate 18 11 L 12 Blood Pressure 103/74 109/68 Pulse Oximetry 98 96 Oxygen Delivery Room Air 06/06/24 14:18 06/06/24 14:19 06/06/24 14:32 Temperature Pulse Rate 102 H 103 H 107 H Respiratory Rate 15 19 18 Blood Pressure 106/74 Pulse Oximetry 99 100 99 Oxygen Delivery 06/06/24 14:45 06/06/24 15:12 06/06/24 15:13 Temperature Pulse Rate 104 H 105 H 103 H Respiratory Rate 15 10 L 15 Blood Pressure 133/57 L Pulse Oximetry 99 99 98 Oxygen Delivery 06/06/24 15:15 06/06/24 15:16 06/06/24 15:30 Temperature Pulse Rate 104 H 103 H 103 H Respiratory Rate 15 15 17 Blood Pressure 122/65 Pulse Oximetry 99 99 99 Oxygen Delivery 06/06/24 15:33 06/06/24 16:00 06/06/24 16:30 Temperature Pulse Rate 108 H 99 102 H Respiratory Rate 17 15 14 Blood Pressure 124/73 119/63 Pulse Oximetry 100 98 100 Oxygen Delivery 06/06/24 16:31 06/06/24 16:45 06/06/24 16:46 Temperature Pulse Rate 101 H 94 96 Respiratory Rate 13 13 16 Blood Pressure 121/62 Pulse Oximetry 99 99 98 Oxygen Delivery Exam Narrative: alert and oriented x3. Lungs and cardiovascular: Within normal limits. Abdomen: Soft, mild to moderately tender in both lower quadrants, no rebound, no masses, no hepatosplenomegaly. Rectal examination within normal limits. Results Labs 06/06/24 14:14 06/06/24 14:14 Labs: Short CBC 06/06/24 Range/Units 14:14 WBC 13.3 H (4.5-10.0) K/mm3 Hgb 14.0 (12.0-15.0) g/dL Hct 43.5 (37.0-47.0) % Plt Count 478 H (150-375) k/mm3 BMP 06/06/24 14:14 Sodium 140 Potassium 3.7 Chloride 98 Carbon Dioxide 25 BUN 32 H D Creatinine 1.40 H Glucose 170 H Calcium 9.6 Liver Function 06/06/24 Range/Units 14:14 Total Bilirubin 1.1 (0.2-1.3) mg/dL AST 24 (14-36) U/L ALT 22 (6-35) U/L Alkaline Phosphatase 94 (38-126) U/L Albumin 4.5 (3.5-5.1) g/dL Urine 06/06/24 Range/Units 15:50 Urine Color Dark yellow (Yellow) Urine Appearance Clear (Clear) Urine pH 5.5 (5.0-9.0) Ur Specific [place] > 1.045 H (1.001-1.035) Urine Protein Trace (Negative) mg/dL Urine Glucose (UA) Negative (Negative) mg/dL
[2024-06-06] MEDS: polyethylene glycoL 3350 238 GM BOTTLE 119 GM PO (20:20)
[2024-06-07] VITALS (9 sets, daily range): BP systolic 112–132; BP diastolic 56–95; PULSE 92–98; RESP 16–20; TEMP 36.6–37.3; O2SAT 96–100; BMI 22.5
[2024-06-07] MEDS: LACTATED RINGERS 1,000 ML 125 ML IV CONT ×3 (02:27→21:22)
[2024-06-07 04:40] LABS: Basophils Percent Auto 0.5 % (0.2-1.2); Eosinophils Absolute Auto 0.1 K/mm3 (0-0.3); Eosinophils Percent Auto 0.9 % (0-4.4); Hematocrit 35.9 % (37.0-47.0); Hemoglobin 11.3 g/dL (12.0-15.0); Immature Granulocyte Absolute 0.03 K/mm3 (0.00-0.031); Immature Granulocyte Percent A 0.3 % (0-0.5); Lymphocytes Absolute Auto 1.36 K/mm3 (0.9-3.2); Lymphocytes Percent Auto 15.4 % (18.3-44.2); Mean Corpuscular HGB Conc 31.5 g/dl (32-36); Mean Corpuscular Hemoglobin 30.3 pg (26-34); Mean Corpuscular Volume 96.2 fl (80-100); Mean Platelet Volume 9.2 fl (7.4-10.4); Monocytes Absolute Auto 1.5 K/mm3 (0.1-0.6); Monocytes Percent Auto 16.9 % (2.6-8.5); Neutrophils Absolute Auto 5.8 K/mm3 (1.3-6.7); Platelet Count Result 401 k/mm3 (150-375); Red Blood Count 3.73 M/mm3 (4.2-5.4); Red Cell Distribution Width 12.7 % (11.5-14.5); White Blood Count 8.9 K/mm3 (4.5-10.0)
[2024-06-07] MEDS: polyethylene glycoL 3350 238 GM BOTTLE 119 GM PO (04:47)
[2024-06-07 05:11] LABS: Alanine Aminotransferase 16 U/L (6-35); Albumin Level 3.4 g/dL (3.5-5.1); Alkaline Phosphatase 75 U/L (38-126); Anion Gap 9 mmol/L (4-12); Aspartate Amino Transferase 18 U/L (14-36); Bilirubin,Total 0.8 mg/dL (0.2-1.3); Blood Urea Nitrogen 27 mg/dL (7-17); Calcium 8.7 mg/dL (8.4-10.2); Carbon Dioxide 27 mmol/L (22-30); Chloride 102 mmol/L (98-107); Estimated CRCL calculation 41 ml/min; Estimated Glomerular Filt Rate 58; Glucose 113 mg/dL (65-110); Sodium 138 mmol/L (137-145)
--- NOTE | 2024-06-07 07:03 | PM.IMPN ---
Progress Note: A&P Assessment and Plan (1) Colitis: Code(s): K52.9 - Noninfective gastroenteritis and colitis, unspecified Status: Acute Assessment and Plan: - CT abdomen/pelvis: 1. Highly suggestive soft tissue density seen in the rectosigmoid area. 2. Thickened wall of the rectosigmoid with minimal fat stranding suggestive of colitis. Colonoscopy advised. - no anemia on lab work - GI consulted, Madelyn provided the following recs: Clinical and radiological picture suggestive of chronic colitis, most likely IBD. NSAIDs could be an exacerbating factor. Differential also includes colonic mass, thought to be less likely Plan for colonoscopy today, further plan of care pending results - IV fluids (2) Colon abnormality: Code(s): K63.9 - Disease of intestine, unspecified Status: Acute Assessment and Plan: - see above (3) HTN (hypertension): Qualifiers: Hypertension type: essential hypertension Qualified Code(s): I10 - Essential (primary) hypertension Code(s): I10 - Essential (primary) hypertension Status: Acute Assessment and Plan: - chronic, currently 125/60 - continue home medications: Lisinopril-hydrochlorothiazide - monitor (4) Hyperlipidemia: Qualifiers: Hyperlipidemia type: mixed hyperlipidemia Qualified Code(s): E78.2 - Mixed hyperlipidemia Code(s): E78.5 - Hyperlipidemia, unspecified Status: Acute Assessment and Plan: - Continue Atorvastatin 10 mg Plan Diet: Clear liquid, NPO at midnight GI Prophylaxis: Not currently indicated DVT Prophylaxis: SCDs Lines: Peripheral Code Status: Full code Time Spent With Patient Time: Subjective Date/time seen: 06/07/24 07:03 Interval history: 63 y/o F with no significant PMH presents here with generalized weakness, nausea, vomiting, and weight loss. The patient presents here from home for further evaluation of generalized weakness, abdominal pain, nausea, vomiting, and weight loss. She reports she initially developed lower abdominal pain in Feb. 06/07/2024 Patient is sitting comfortably at bedside. Planning for colonoscopy today. She is denying any chest pain, n/v, shortness of breath. Does endorse some abdominal tenderness, generalized but more on the RUQ. Minimal bowel movements today, still diarrhea with some blood but less so than yesterday. Colonoscopy planned for 2pm today. Review of Systems Review of Systems: All systems reviewed & are unremarkable except as noted in HPI and below Exam Const: General: comfortable and no acute distress Other: , female, thin, nontoxic appearance HENMT: Face/Nose/Sinus: Normal nares present Mouth: Yes moist mucous membranes Eyes: General: appearance normal, both eyes and all related structures Sclera: sclerae normal Pupils: Equal, round and reactive pupils present EOM: EOMs intact bilaterally Resp: Effort & Inspection: normal respiratory effort Auscultation: clear to auscultation bilaterally Cardio: Rate: regular rate Rhythm: regular rhythm GI: Other: Abdomen nondistended, significantly tender limiting exam, normoactive bowel sounds in all quadrants. Skin: General skin exam: normal color and no rashes or lesions noted Wounds: no wounds Neuro: Cranial nerves: Yes Equal, round and reactive pupils present Speech: normal speech Motor exam (neuro): 5/5 motor strength present throughout Sensory Exam: normal sensation Other: S1-S2 present without murmur, rub, ectopy Extrem: General: normal to inspection Psych: Mental Status: mental status grossly normal Affect: normal affect Other: Good insight and judgment, pleasant Objective Data Vital Signs Vital Signs: Vital Signs - 24 hr 06/06/24 13:00 06/06/24 14:02 06/06/24 14:03 Temperature 97.9 F Pulse Rate 127 H 109 H 106 H Respiratory Rate 18 11 L 12 Blood Pressure 103/74 109/68 Pulse Oximetry 98 96 Oxygen Delivery Room Air 06/06/24 14:18 06/06/24 14:19 06/06/24 14:32 Temperature Pulse Rate 102 H 103 H 107 H Respiratory Rate 15 19 18 Blood Pressure 106/74 Pulse Oximetry 99 100 99 Oxygen Delivery 06/06/24 14:45 06/06/24 15:12 06/06/24 15:13 Temperature Pulse Rate 104 H 105 H 103 H Respiratory Rate 15 10 L 15 Blood Pressure 133/57 L Pulse Oximetry 99 99 98 Oxygen Delivery 06/06/24 15:15 06/06/24 15:16 06/06/24 15:30 Temperature Pulse Rate 104 H 103 H 103 H Respiratory Rate 15 15 17 Blood Pressure 122/65 Pulse Oximetry 99 99 99 Oxygen Delivery 06/06/24 15:33 06/06/24 16:00 06/06/24 16:30 Temperature Pulse Rate 108 H 99 102 H Respiratory Rate 17 15 14 Blood Pressure 124/73 119/63 Pulse Oximetry 100 98 100 Oxygen Delivery 06/06/24 16:31 06/06/24 16:45 06/06/24 16:46 Temperature Pulse Rate 101 H 94 96 Respiratory Rate 13 13 16 Blood Pressure 121/62 Pulse Oximetry 99 99 98 Oxygen Delivery 06/06/24 19:50 06/07/24 04:35 Temperature 98.7 F 98.9 F Pulse Rate 105 H 98 Respiratory Rate 17 17 Blood Pressure 125/60 129/67 Pulse Oximetry 100 97 Oxygen Delivery Intake/Output Intake/Output: Intake & Output 06/04/24 06/05/24 06/06/24 06/07/24 23:59 23:59 23:59 23:59 Intake Total 1999 977.1 Balance 1999 977.1 Meds/Results Medications: Active Medications Generic Name Dose Route Start Last Admin Trade Name Freq PRN Reason Stop Dose Admin Acetaminophen 650 mg 06/06/24 16:47 Acetaminophen 325 Mg Tablet PO Q4H PRN Mild Pain (1-3) or Fever Atorvastatin Calcium 10 mg 06/07/24 09:00 Atorvastatin 10 Mg Tablet PO DAILY GRETTA Dicyclomine HCl 10 mg 06/06/24 23:33 Dicyclomine Hcl 10 Mg Capsule PO QID PRN abdominal pain Hydrochlorothiazide 12.5 mg 06/07/24 09:00 Hydrochlorothiazide 12.5 Mg Capsule PO QAM [facility] Lactated Ringer's 1,000 mls @ 125 mls/hr 06/06/24 16:50 06/07/24 02:27 Lr - Lactated Ringers Iv IV CONT 125 mls/hr .Q8H GRETTA Administration Lisinopril 10 mg 06/07/24 09:00 Lisinopril 10 Mg Tablet PO QAM GRETTA Montelukast Sodium 10 mg 06/07/24 18:00 Montelukast Sodium 10 Mg Tablet PO QPM GRETTA Morphine Sulfate 4 mg 06/06/24 16:47 06/06/24 20:21 Morphine Sulfate (*Crx) 4 Mg/Ml Inj IV PUSH 4 mg Q2H PRN Administration Pain Rated 7-10 Ondansetron HCl 4 mg 06/06/24 16:47 Ondansetron Inj 4 Mg/2 Ml Vial IV PUSH Q4H PRN Nausea Potassium Chloride 20 meq 06/07/24 09:00 Potassium Chloride 20 Meq Er Tablet PO BID [facility] Fluticasone/Salmeterol 2 puff 06/07/24 08:00 Fluticasone/Salmeterol 115-21 Mcg Inhaler 1 Puff INHALATION Q12HRT [facility] Radiology Results: ITS Impressions Chest X-Ray 06/06/24 14:34 IMPRESSION: 1. No acute cardiopulmonary disease. Abdomen/Pelvis CT 06/06/24 15:17 IMPRESSION: 1. Highly suggestive soft tissue density seen in the rectosigmoid area. 2. Thickened wall of the rectosigmoid with minimal fat stranding suggestive of colitis. Colonoscopy advised. 3. Constipation. 4. Stones in the left kidney lower pole Labs Labs: Laboratory Results - last 24 hr 06/06/24 06/06/24 06/06/24 14:14 15:34 15:50 WBC 13.3 H RBC 4.60 Hgb 14.0 Hct 43.5 MCV 94.6 MCH 30.4 MCHC 32.2 RDW 12.8 Plt Count 478 H MPV 9.0 Immature Gran % (Auto) 0.4 Neut % (Auto) 82.6 H Lymph % (Auto) 6.1 L [place] % (Auto) 10.6 H Eos % (Auto) 0.0 Baso % (Auto) 0.3 Lymph # (Auto) 0.81 L [place] # (Auto) 1.4 H Eos # (Auto) 0.0 Baso # (Auto) 0.0 Abs Immat Gran (auto) 0.05 H Absolute Neuts (auto) 11.0 H Absolute Nucleated RBC 0.000 Nucleated RBC % 0.0 Sodium 140 Potassium 3.7 Chloride 98 Carbon Dioxide 25 Anion Gap 17 H BUN 32 H D Creatinine 1.40 H Estim Creat Clear Calc 29 Estimated GFR 38 L Glucose 170 H Lactic Acid 2.0 Calcium 9.6 Total Bilirubin 1.1 AST 24 ALT 22 Alkaline Phosphatase 94 Total Protein 8.0 Albumin 4.5 Urine Color Dark yellow Urine Appearance Clear Urine pH 5.5 Ur Specific [place] > 1.045 H Urine Protein Trace Urine Glucose (UA) Negative Urine Ketones Negative Ur Blood (Man) Negative Urine Nitrate Negative Urine Bilirubin 2+ H Urine Urobilinogen 1.0 Leukocyte Esterase Rfl Negative Urine RBC 0-2 Urine WBC 0-5 Ur Squamous Epith Cells Occasional Urine Bacteria None seen Urine Casts 0-2 06/07/24 04:09 WBC 8.9 RBC 3.73 L Hgb 11.3 L Hct 35.9 L MCV 96.2 MCH 30.3 MCHC 31.5 L RDW 12.7 Plt Count 401 H MPV 9.2 Immature Gran % (Auto) 0.3 Neut % (Auto) 66.0 Lymph % (Auto) 15.4 L [place] % (Auto) 16.9 H Eos % (Auto) 0.9 Baso % (Auto) 0.5 Lymph # (Auto) 1.36 [place] # (Auto) 1.5 H Eos # (Auto) 0.1 Baso # (Auto) 0.0 Abs Immat Gran (auto) 0.03 Absolute Neuts (auto) 5.8 Absolute Nucleated RBC 0.000 Nucleated RBC % 0.0 Sodium 138 Potassium 4.0 Chloride 102 Carbon Dioxide 27 Anion Gap 9 BUN 27 H Creatinine 0.97 Estim Creat Clear Calc 41 Estimated GFR 58 L Glucose 113 H Lactic Acid Calcium 8.7 Total Bilirubin 0.8 AST 18 ALT 16 Alkaline Phosphatase 75 Total Protein 6.0 L Albumin 3.4 L Urine Color Urine Appearance Urine pH Ur Specific [place] Urine Protein Urine Glucose (UA) Urine Ketones Ur Blood (Man) Urine Nitrate Urine Bilirubin Urine Urobilinogen Leukocyte Esterase Rfl Urine RBC Urine WBC Ur Squamous Epith Cells Urine Bacteria Urine Casts Quality VTE Prophylaxis VTE prophylaxis: mechanical ordered Hospitalist [facility] Advance Care Plan I have confirmed that the patient's Advanced Care Plan is present, code status is documented, or surrogate decision maker is listed in patient medical record.: Yes Medication Reconciliation I have utilized all available resources to obtain, update and review the patients current medications (includes all prescriptions, OTC, herbals, cannabis, and nutritional supplements).: Yes
[2024-06-07] MEDS: FLUTICASONE/SALMETEROL 115-21 MCG INHALER 1 PUFF 2 PUFF INHALATION ×2 (07:42→20:42)
--- NOTE | 2024-06-07 12:50 | PC.NURSE ---
Patient off floor to GI lab. Report given to Jaylon DAMON.
[2024-06-07] MEDS: LACTATED RINGERS 1,000 ML 150 ML IV CONT (13:12)
--- NOTE | 2024-06-07 13:17 | P.PNAN_ITS ---
Anes - Initial Pre Proc Eval Procedure: Operation Date: 06/07/24 14:00 Proposed Procedures p Colonoscopy - Marbin Joshi MD Date/Time: 06/07/24 13:17 Surgeon: Gregory Mcclure PA-C Pre Op Diagnosis: Colitis with Rectal Mass Suspected Patient Data Age: 63 Gender: F Height: 1.57 m Weight: 55.8 kg Last Vital Signs Temp 36.6 C 06/07/24 13:10 Pulse 97 06/07/24 13:10 Resp 20 06/07/24 13:10 BP 130/62 06/07/24 13:10 Pulse Ox 97 06/07/24 13:10 O2 Del Method Room Air 06/07/24 13:10 Allergies Allergy/AdvReac Type Severity Reaction Status Date / Time cefprozil Allergy Unknown unknown Verified 06/07/24 13:07 codeine Allergy Unknown Itching Verified 06/07/24 13:07 diphenhydramine Allergy Unknown Hives Verified 06/07/24 13:07 lovastatin Allergy Unknown unknown Verified 06/07/24 13:07 metronidazole Allergy Unknown unknown Verified 06/07/24 13:07 niacin Allergy Unknown unknown Verified 06/07/24 13:07 ofloxacin Allergy Unknown unknown Verified 06/07/24 13:07 oxaprozin Allergy Unknown unknown Verified 06/07/24 13:07 oxytetracycline Allergy Unknown unknown Verified 06/07/24 13:07 sulfamethizole Allergy Unknown unknown Verified 06/07/24 13:07 tetracycline Allergy Unknown unknown Verified 06/07/24 13:07 trimethoprim Allergy Unknown unknown Verified 06/07/24 13:07 Home Medications ?Medication ?Instructions ?Recorded ?Confirmed ?Type cyclobenzaprine 10 mg tablet 10 mg PO TID PRN muscle spasm #21 03/22/23 06/06/24 Rx tabs atorvastatin 10 mg tablet 10 mg PO DAILY #90 tabs 11/21/23 06/06/24 Rx lisinopril 10 See Rx Instructions .Route 11/21/23 06/06/24 Rx mg-hydrochlorothiazide 12.5 mg .COMPLEX #90 tabs tablet montelukast 10 mg tablet See Rx Instructions .Route 11/21/23 06/06/24 Rx .COMPLEX #90 tabs budesonide-formoterol HFA 160 2 puff inhalation Q12H #10.2 grams 04/02/24 06/06/24 Rx mcg-4.5 mcg/actuation aerosol inhaler (Breyna) azithromycin 500 mg tablet 500 mg PO DAILY 3 days #3 tabs 06/05/24 06/06/24 Rx dicyclomine 10 mg capsule 10 mg PO QID PRN abdominal pain 06/05/24 06/06/24 Rx #120 caps potassium chloride 20 mEq 20 meq PO BID #6 tabs 06/06/24 06/06/24 Rx tablet,extended release (K-Tab) Laboratory Tests 06/06/24 06/06/24 06/06/24 14:14 15:34 15:50 WBC 13.3 H K/mm3 (4.5-10.0) RBC 4.60 M/mm3 (4.2-5.4) Hgb 14.0 g/dL (12.0-15.0) Hct 43.5 % (37.0-47.0) MCV 94.6 fl (80-100) MCH 30.4 pg (26-34) MCHC 32.2 g/dl (32-36) RDW 12.8 % (11.5-14.5) Plt Count 478 H k/mm3 (150-375) MPV 9.0 fl (7.4-10.4) Immature Gran % (Auto) 0.4 % (0-0.5) Neut % (Auto) 82.6 H % (45.5-73.1) Lymph % (Auto) 6.1 L % (18.3-44.2) [place] % (Auto) 10.6 H % (2.6-8.5) Eos % (Auto) 0.0 % (0-4.4) Baso % (Auto) 0.3 % (0.2-1.2) Lymph # (Auto) 0.81 L K/mm3 (0.9-3.2) [place] # (Auto) 1.4 H K/mm3 (0.1-0.6) Eos # (Auto) 0.0 K/mm3 (0-0.3) Baso # (Auto) 0.0 K/mm3 (0.0-0.1) Abs Immat Gran (auto) 0.05 H K/mm3 (0.00-0.031) Absolute Neuts (auto) 11.0 H K/mm3 (1.3-6.7) Absolute Nucleated RBC 0.000 K/mm3 (0.0-0.012) Nucleated RBC % 0.0 % (0.0-0.2) Sodium 140 mmol/L (137-145) Potassium 3.7 mmol/L (3.4-5.0) Chloride 98 mmol/L (98-107) Carbon Dioxide 25 mmol/L (22-30) Anion Gap 17 H mmol/L (4-12) BUN 32 H D mg/dL (7-17) Creatinine 1.40 H mg/dL (0.7-1.0) Estim Creat Clear Calc 29 ml/min Estimated GFR 38 L (59 - ) Glucose 170 H mg/dL (65-110) Lactic Acid 2.0 mmol/L (0.7-2.0) Calcium 9.6 mg/dL (8.4-10.2) Total Bilirubin 1.1 mg/dL (0.2-1.3) AST 24 U/L (14-36) ALT 22 U/L (6-35) Alkaline Phosphatase 94 U/L (38-126) Total Protein 8.0 g/dL (6.3-8.2) Albumin 4.5 g/dL (3.5-5.1) Urine Color Dark yellow (Yellow) Urine Appearance Clear (Clear) Urine pH 5.5 (5.0-9.0) Ur Specific [place] > 1.045 H (1.001-1.035) Urine Protein Trace mg/dL (Negative) Urine Glucose (UA) Negative mg/dL (Negative) Urine Ketones Negative mg/dL (Negative) Ur Blood (Man) Negative (Negative) Urine Nitrate Negative (Negative) Urine Bilirubin 2+ H (Negative) Urine Urobilinogen 1.0 mg/dL (<2.0) Leukocyte Esterase Rfl Negative RAMY/UL (Negative) Urine RBC 0-2 /hpf (0-2) Urine WBC 0-5 /hpf (0-3) Ur Squamous Epith Cells Occasional /hpf (Few) Urine Bacteria None seen /hpf Urine Casts 0-2 06/07/24 04:09 WBC 8.9 K/mm3 (4.5-10.0) RBC 3.73 L M/mm3 (4.2-5.4) Hgb 11.3 L g/dL (12.0-15.0) Hct 35.9 L % (37.0-47.0) MCV 96.2 fl (80-100) MCH 30.3 pg (26-34) MCHC 31.5 L g/dl (32-36) RDW 12.7 % (11.5-14.5) Plt Count 401 H k/mm3 (150-375) MPV 9.2 fl (7.4-10.4) Immature Gran % (Auto) 0.3 % (0-0.5) Neut % (Auto) 66.0 % (45.5-73.1) Lymph % (Auto) 15.4 L % (18.3-44.2) [place] % (Auto) 16.9 H % (2.6-8.5) Eos % (Auto) 0.9 % (0-4.4) Baso % (Auto) 0.5 % (0.2-1.2) Lymph # (Auto) 1.36 K/mm3 (0.9-3.2) [place] # (Auto) 1.5 H K/mm3 (0.1-0.6) Eos # (Auto) 0.1 K/mm3 (0-0.3) Baso # (Auto) 0.0 K/mm3 (0.0-0.1) Abs Immat Gran (auto) 0.03 K/mm3 (0.00-0.031) Absolute Neuts (auto) 5.8 K/mm3 (1.3-6.7) Absolute Nucleated RBC 0.000 K/mm3 (0.0-0.012) Nucleated RBC % 0.0 % (0.0-0.2) Sodium 138 mmol/L (137-145) Potassium 4.0 mmol/L (3.4-5.0) Chloride 102 mmol/L (98-107) Carbon Dioxide 27 mmol/L (22-30) Anion Gap 9 mmol/L (4-12) BUN 27 H mg/dL (7-17) Creatinine 0.97 mg/dL (0.7-1.0) Estim Creat Clear Calc 41 ml/min Estimated GFR 58 L (59 - ) Glucose 113 H mg/dL (65-110) Lactic Acid Calcium 8.7 mg/dL (8.4-10.2) Total Bilirubin 0.8 mg/dL (0.2-1.3) AST 18 U/L (14-36) ALT 16 U/L (6-35) Alkaline Phosphatase 75 U/L (38-126) Total Protein 6.0 L g/dL (6.3-8.2) Albumin 3.4 L g/dL (3.5-5.1) Urine Color Urine Appearance Urine pH Ur Specific [place] Urine Protein Urine Glucose (UA) Urine Ketones Ur Blood (Man) Urine Nitrate Urine Bilirubin Urine Urobilinogen Leukocyte Esterase Rfl Urine RBC Urine WBC Ur Squamous Epith Cells Urine Bacteria Urine Casts Patient hx anesthesia problems: none Family hx anesthesia problems: none Results Review: All pre-operative results and documents have been reviewed as part of the pre- operative evaluation. [facility] Past Medical History Medical History Uncomplicated asthma Sprain of left ankle Seasonal allergic rhinitis Fatigue Vitamin D deficiency Skin tag On penitentiary drug therapy Mild intermittent asthma without complication History of colon polyps Bronchitis Abnormal LFTs UTI (urinary tract infection) Shoulder pain HTN (hypertension) Family History Family History Father Hypertension Family history of chronic obstructive pulmonary disease Colon polyp Family history of heart disease in male family member before age 55 Family history of cardiovascular disease Mother Hypertension Patient's mother is in good health Grandparent Hypertension Social History Social History Smoking status: Never smoker Alcohol intake: never Substance use: never Do You Feel Safe in your Home?: Yes Lack of Transportation: No Lack of Food: Never True Current Housing: I Have Housing Concerned About Future Housing: No Difficulty Paying Gas/Electric Bills: No Difficulty Paying for Meds: No Currently Unemployed: No Education: Associate Degree Difficulty w/ Childcare or Family Care: No Gender identity (if verbalized by the patient): Female Spiritual care concerns: No Anes - Eval Final PreProcedure Day of Procedure 06/07/24 13:17 Patient weight: normal Heart: regular rate and rhythm Lungs: clear to auscultation Airway: Mallampati scale class II Neurological: alert and oriented Last oral intake: >/= 8 hours ASA classification: III Emergent: no Anesthetic plan: proceed Anesthesia type and monitoring: general GIVS and standard monitoring Results Review: All pre-operative results and documents have been reviewed as part of the pre- operative evaluation. Informed Consent: The patient's anesthetic plan and its attendant risks and benefits were discussed with the patient/family/POA. Questions were solicited and answers provided to the satisfaction of the patient/family/POA.
[2024-06-07] MEDS: DICYCLOMINE HCL 10 MG CAPSULE PO (15:00)
[2024-06-07] MEDS: ACETAMINOPHEN 325 MG TABLET 650 MG PO (15:00)
--- NOTE | 2024-06-07 16:32 | WPDGIPROGNO ---
Progress Note: A&P Assessment and Plan (1) Rectal neoplasm: Code(s): D49.0 - Neoplasm of unspecified behavior of digestive system Status: Acute Assessment and Plan: Patient with locally advanced recal malignancy, likely adenocarcinoma. Will complete staging with a Chest CT scan and a Pelvic MRI. Case discussed with Dr Dami Hernandez ([facility]), will schedule rectal stent placement prior to neoadjuvant treatment with chemotherapy and radiation, which can offer the best survival benefit prior to surgery. She can be discharged when these imaging studies are done. Biopsies are pending, as well as CEA level ordered. Time Spent With Patient Time with patient: 15 - 25 minutes Subjective Date/time seen: 06/07/24 16:32 Interval history: See colonoscopy report - patient with severely near obstructive rectal mass. Exam Narrative: Unchanged from yesterday Objective Data Vital Signs Vital Signs: Vital Signs - 24 hr 06/06/24 16:45 06/06/24 16:46 06/06/24 19:50 Temperature 98.7 F Pulse Rate 94 96 105 H Respiratory Rate 13 16 17 Blood Pressure 121/62 125/60 Pulse Oximetry 99 98 100 Oxygen Delivery 06/07/24 04:35 06/07/24 07:43 06/07/24 07:43 Temperature 98.9 F Pulse Rate 98 96 Respiratory Rate 17 Blood Pressure 129/67 Pulse Oximetry 97 96 Oxygen Delivery Room Air 06/07/24 08:00 06/07/24 13:10 06/07/24 14:00 Temperature 97.8 F 97.8 F Pulse Rate 97 94 Respiratory Rate 20 16 Blood Pressure 130/62 131/67 Pulse Oximetry 97 98 Oxygen Delivery Room Air Room Air 06/07/24 14:12 06/07/24 14:22 06/07/24 14:32 Temperature Pulse Rate 98 94 92 Respiratory Rate 18 18 18 Blood Pressure 112/59 L 123/78 130/95 H Pulse Oximetry 100 100 100 Oxygen Delivery Room Air Room Air Room Air Intake/Output Intake/Output: Intake & Output 06/04/24 06/05/24 06/06/24 06/07/24 23:59 23:59 23:59 23:59 Intake Total 1999 2177.1 Balance 1999 2177.1 Meds/Results Medications: Active Medications Generic Name Dose Route Start Last Admin Trade Name Freq PRN Reason Stop Dose Admin Acetaminophen 650 mg 06/06/24 16:47 06/07/24 15:00 Acetaminophen 325 Mg Tablet PO 650 mg Q4H PRN Administration Mild Pain (1-3) or Fever Atorvastatin Calcium 10 mg 06/07/24 09:00 06/07/24 08:53 Atorvastatin 10 Mg Tablet PO Not Given DAILY GRETTA Dicyclomine HCl 10 mg 06/06/24 23:33 06/07/24 15:00 Dicyclomine Hcl 10 Mg Capsule PO 10 mg QID PRN Administration abdominal pain Hydrochlorothiazide 12.5 mg 06/07/24 09:00 06/07/24 08:53 Hydrochlorothiazide 12.5 Mg Capsule PO Not Given QAM [facility] Lactated Ringer's 1,000 mls @ 125 mls/hr 06/06/24 16:50 06/07/24 11:05 Lr - Lactated Ringers Iv IV CONT 125 mls/hr .Q8H GRETTA Administration Lisinopril 10 mg 06/07/24 09:00 06/07/24 08:53 Lisinopril 10 Mg Tablet PO Not Given QAM [facility] Montelukast Sodium 10 mg 06/07/24 18:00 Montelukast Sodium 10 Mg Tablet PO QPM [facility] Morphine Sulfate 4 mg 06/06/24 16:47 06/06/24 20:21 Morphine Sulfate (*Crx) 4 Mg/Ml Inj IV PUSH 4 mg Q2H PRN Administration Pain Rated 7-10 Ondansetron HCl 4 mg 06/06/24 16:47 Ondansetron Inj 4 Mg/2 Ml Vial IV PUSH Q4H PRN Nausea Potassium Chloride 20 meq 06/07/24 09:00 06/07/24 08:53 Potassium Chloride 20 Meq Er Tablet PO Not Given BID GRETTA Fluticasone/Salmeterol 2 puff 06/07/24 08:00 06/07/24 07:42 Fluticasone/Salmeterol 115-21 Mcg Inhaler 1 Puff INHALATION 2 puff Q12HRT GRETTA Administration Radiology Results: ITS Impressions Chest X-Ray 06/06/24 14:34 IMPRESSION: 1. No acute cardiopulmonary disease. Abdomen/Pelvis CT 06/06/24 15:17 IMPRESSION: 1. Highly suggestive soft tissue density seen in the rectosigmoid area. 2. Thickened wall of the rectosigmoid with minimal fat stranding suggestive of colitis. Colonoscopy advised. 3. Constipation. 4. Stones in the left kidney lower pole Labs Labs: Laboratory Results - last 24 hr 06/07/24 04:09 WBC 8.9 RBC 3.73 L Hgb 11.3 L Hct 35.9 L MCV 96.2 MCH 30.3 MCHC 31.5 L RDW 12.7 Plt Count 401 H MPV 9.2 Immature Gran % (Auto) 0.3 Neut % (Auto) 66.0 Lymph % (Auto) 15.4 L [place] % (Auto) 16.9 H Eos % (Auto) 0.9 Baso % (Auto) 0.5 Lymph # (Auto) 1.36 [place] # (Auto) 1.5 H Eos # (Auto) 0.1 Baso # (Auto) 0.0 Abs Immat Gran (auto) 0.03 Absolute Neuts (auto) 5.8 Absolute Nucleated RBC 0.000 Nucleated RBC % 0.0 Sodium 138 Potassium 4.0 Chloride 102 Carbon Dioxide 27 Anion Gap 9 BUN 27 H Creatinine 0.97 Estim Creat Clear Calc 41 Estimated GFR 58 L Glucose 113 H Calcium 8.7 Total Bilirubin 0.8 AST 18 ALT 16 Alkaline Phosphatase 75 Total Protein 6.0 L Albumin 3.4 L
[2024-06-07] MEDS: POTASSIUM CHLORIDE 20 MEQ ER TABLET PO (17:11)
[2024-06-07] MEDS: MONTELUKAST SODIUM 10 MG TABLET PO (17:11)
[2024-06-07 17:56] LABS: Carcinoembryonic Antigen 31.2 ng/mL (0.0-3.0)
[2024-06-07] MEDS: MORPHINE SULFATE (*CRX) 4 MG/ML INJ IV PUSH (18:42)
[2024-06-08] MEDS: LACTATED RINGERS 1,000 ML 125 ML IV CONT (05:17)
[2024-06-08 05:40] VITALS: BP 126/63; PULSE 100; RESP 20; TEMP 37.1; O2SAT 97
[2024-06-08 07:19] LABS: Basophils Absolute Auto 0.1 K/mm3 (0.0-0.1); Basophils Percent Auto 0.7 % (0.2-1.2); Eosinophils Absolute Auto 0.2 K/mm3 (0-0.3); Eosinophils Percent Auto 2.4 % (0-4.4); Hematocrit 34.7 % (37.0-47.0); Hemoglobin 10.9 g/dL (12.0-15.0); Immature Granulocyte Absolute 0.02 K/mm3 (0.00-0.031); Immature Granulocyte Percent A 0.3 % (0-0.5); Lymphocytes Percent Auto 16.3 % (18.3-44.2); Mean Corpuscular HGB Conc 31.4 g/dl (32-36); Mean Corpuscular Hemoglobin 30.3 pg (26-34); Mean Corpuscular Volume 96.4 fl (80-100); Monocytes Percent Auto 13.6 % (2.6-8.5); Neutrophils Absolute Auto 4.9 K/mm3 (1.3-6.7); Neutrophils Percent Auto 66.7 % (45.5-73.1); Platelet Count Result 378 k/mm3 (150-375); Red Cell Distribution Width 12.6 % (11.5-14.5); White Blood Count 7.4 K/mm3 (4.5-10.0)
[2024-06-08 07:38] LABS: Alanine Aminotransferase 16 U/L (6-35); Albumin Level 3.3 g/dL (3.5-5.1); Alkaline Phosphatase 80 U/L (38-126); Anion Gap 7 mmol/L (4-12); Aspartate Amino Transferase 23 U/L (14-36); Bilirubin,Total 0.9 mg/dL (0.2-1.3); Blood Urea Nitrogen 12 mg/dL (7-17); Calcium 8.5 mg/dL (8.4-10.2); Carbon Dioxide 27 mmol/L (22-30); Chloride 104 mmol/L (98-107); Estimated CRCL calculation 49 ml/min; Estimated Glomerular Filt Rate > 60; Glucose 109 mg/dL (65-110); Potassium 3.6 mmol/L (3.4-5.0); Sodium 138 mmol/L (137-145)
--- NOTE | 2024-06-08 10:22 | PCRCNOTE ---
Window of time for administration has passed. See next scheduled administration.
[2024-06-08] MEDS: POTASSIUM CHLORIDE 20 MEQ ER TABLET PO (11:27)
[2024-06-08] MEDS: lisinopriL 10 MG TABLET PO (11:27)
[2024-06-08] MEDS: ATORVASTATIN 10 MG TABLET PO (11:27)
[2024-06-08] MEDS: DICYCLOMINE HCL 10 MG CAPSULE PO (11:27)
[2024-06-08] MEDS: hydroCHLOROthiazide 12.5 MG CAPSULE PO (11:27)
--- NOTE | 2024-06-08 11:40 | P.DS_ITS ---
DS: Admitting Diagnosis Discharge Date 06/08/2024 Admitting Diagnosis Colitis Colon abnormality DS: Discharge Diagnosis Discharge Diagnosis (1) Colitis: Code(s): K52.9 - Noninfective gastroenteritis and colitis, unspecified Status: Acute (2) Colon abnormality: Code(s): K63.9 - Disease of intestine, unspecified Status: Acute (3) HTN (hypertension): Qualifiers: Hypertension type: essential hypertension Qualified Code(s): I10 - Essential (primary) hypertension Code(s): I10 - Essential (primary) hypertension Status: Acute (4) Hyperlipidemia: Qualifiers: Hyperlipidemia type: mixed hyperlipidemia Qualified Code(s): E78.2 - Mixed hyperlipidemia Code(s): E78.5 - Hyperlipidemia, unspecified Status: Acute DS: Summary Hospital Course Reason for hospitalization: Weakness, N/V Abdominal pain Hospital Course: 63 y/o F with no significant PMH presents here with generalized weakness, nausea, vomiting, and weight loss. The patient presents here from home for further evaluation of generalized weakness, abdominal pain, nausea, vomiting, and weight loss. She reports she initially developed lower abdominal pain in Feb. Pain was crampy and she thought this was indicative that she needed to go to the restroom but would be unable to. She began having semi formed stools around similar time. March the patient saw her PCP who diagnosed her with gastroenteritis. Patient then began losing weight starting mid March. Currently has lost a total of 20 lbs. Then in April she developed light red mucus like stool, more of a liquid consistency and stool had flecks of black. PCP then referred her to GI who she was able to see yesterday. Lab work and stool studies were performed and patient had planned outpatient CT for early June. Now presenting today due to the severity of her weakness and the abdominal pain had become more severe. She was unable to get out of bed or get to work. Last colonoscopy in 2019 - two polyps removed, benign. She was told to repeat in 5 years. FH of cancer - mother had uterine cancer. Initial VS at presentation: 97.9 ? F, HR 127, RR 18, 103/74, and 98% on room air ED workup showed: WBC 13.3, no anemia, creatinine 1.4 and GFR 38, UA showed high specific gravity and 2+ bilirubin. CXR showed no acute cardiopulmonary disease. CT abdomen/pelvis showed highly suggest a soft tissue density seen in the rectosigmoid area, thickened wall the rectosigmoid with minimal fat stranding suggestive of colitis, constipation, stones in the left kidney lower pole.. Patient was seen by Gastroenterology who agreed that her clinical and radiologic picture is suggestive of chronic colitis, possibly IBD, possibly colonic mass, they recommended a colonoscopy. She was taken for a Sigmoidoscopy on 06/07, with the report showing a partially-obstructing, large-size friable, infiltrative, malignant appearing circumferential mass in the rectum between 10-15 cm above anal margin with multiple biopsies taken. Likely adenocarcinoma. Chest CT obtained for staging which found Bilateral basal atelectasis versus pneumonia more on the right side. No definite metastatic lesions seen. GI spoke with Dr. Cecilia hudson at [facility] and plan to schedule rectal stent placement prior to neoadjuvant tx with chemo and radiation. Pelvic MRI obtained and will plan for discharge after these are completed. Time Spent with Patient Time attestation: Total time spent providing and/or coordinating discharge services: Exam Narrative: veery tender lower abd. frail. Const: General: comfortable and no acute distress Other: , female, thin, nontoxic appearance HENMT: Face/Nose/Sinus: Normal nares present Mouth: Yes moist mucous membranes Eyes: General: appearance normal, both eyes and all related structures Sclera: sclerae normal Pupils: Equal, round and reactive pupils present EOM: EOMs intact bilaterally Resp: Effort & Inspection: normal respiratory effort Auscultation: clear to auscultation bilaterally Cardio: Rate: regular rate Rhythm: regular rhythm GI: Other: Abdomen nondistended, significantly tender limiting exam, normoactive bowel sounds in all quadrants. Skin: General skin exam: normal color and no rashes or lesions noted Wounds: no wounds Neuro: Cranial nerves: Yes Equal, round and reactive pupils present Speech: normal speech Motor exam (neuro): 5/5 motor strength present throughout Sensory Exam: normal sensation Other: S1-S2 present without murmur, rub, ectopy Extrem: General: normal to inspection Psych: Mental Status: mental status grossly normal Affect: normal affect Other: Good insight and judgment, pleasant DS: Data Data Completed and Pending Pending studies at discharge: Pending at discharge 06/07/24 14:13 Surgical [PTH] Routine Labs on day of discharge: Labs from last 24 hours 06/08/24 06/07/24 07:09 04:06 WBC 7.4 RBC 3.60 L Hgb 10.9 L Hct 34.7 L MCV 96.4 MCH 30.3 MCHC 31.4 L RDW 12.6 Plt Count 378 H MPV 9.0 Immature Gran % (Auto) 0.3 Neut % (Auto) 66.7 Lymph % (Auto) 16.3 L [place] % (Auto) 13.6 H Eos % (Auto) 2.4 Baso % (Auto) 0.7 Lymph # (Auto) 1.20 [place] # (Auto) 1.0 H Eos # (Auto) 0.2 Baso # (Auto) 0.1 Abs Immat Gran (auto) 0.02 Absolute Neuts (auto) 4.9 Absolute Nucleated RBC 0.000 Nucleated RBC % 0.0 Sodium 138 Potassium 3.6 Chloride 104 Carbon Dioxide 27 Anion Gap 7 BUN 12 D Creatinine 0.81 Estim Creat Clear Calc 49 Estimated GFR > 60 Glucose 109 Calcium 8.5 Total Bilirubin 0.9 AST 23 ALT 16 Alkaline Phosphatase 80 Total Protein 6.0 L Albumin 3.3 L Carcinoembryonic Ag 31.2 H Discharge Plan Discharge Attending physician on discharge: Gregory Mcclure Consulting providers: Marbin Joshi Discharging Clinician: Gregory Mcclure Anticipated Discharge Date/Time: 06/08/24 12:36 Patient Disposition: Home, Self-Care Activity: as tolerated Diet: as tolerated Discharge Instructions: Take medications as prescribed Monitor blood pressures Take caution while standing, rising, or moving Change positions slowly taking a break between each position change If you standing feel dizzy sit back down and take a break Encouraged to continue with yearly vaccinations Return to the emergency department if he developed sudden shortness of breath, chest pain, nausea, vomiting, upset stomach or intractable diarrhea Return to the emergency department if you develop fever greater than 101.5 Follow-up with the primary care physician within 1-2 weeks regarding your visit. Follow up with Dr. Joshi of Gastroenterology as soon as possible. Thank you for [facility] for your healthcare needs Patient Instructions: Antibiotic Form Patient Language: Chilean Stand Alone Forms: General Discharge Information Follow-up/Referrals: Canelo Stallworth MD [Primary Care Provider] - Marbin Joshi MD [Physician] - Discharge Medications: New hydrocodone-acetaminophen 5-325 mg tablet 1 tablet PO Q12H PRN (Reason: pain) Qty: 14 0RF Continued atorvastatin 10 mg tablet 10 mg PO DAILY Qty: 90 2RF lisinopril-hydrochlorothiazide 10-12.5 mg tablet See Rx Instructions .ROUTE .COMPLEX Qty: 90 2RF Dose Instruction: Take 1 tablet by mouth once daily Rx Instructions: Take 1 tablet by mouth once daily montelukast 10 mg tablet See Rx Instructions .ROUTE .COMPLEX Qty: 90 2RF Dose Instruction: Take 1 tablet by mouth in the evening Rx Instructions: Take 1 tablet by mouth in the evening cyclobenzaprine 10 mg tablet 10 mg PO TID PRN (Reason: muscle spasm) Qty: 21 1RF dicyclomine 10 mg capsule 10 mg PO QID PRN (Reason: abdominal pain) Qty: 120 0RF azithromycin 500 mg tablet 500 mg PO DAILY 3 Days Qty: 3 0RF budesonide-formoterol [Breyna] 160-4.5 mcg/actuation HFA aerosol inhaler 2 puff inhalation Q12H Qty: 10.2 3RF potassium chloride [K-Tab] 20 mEq tablet extended release 20 meq PO BID Qty: 6 0RF Date of admission: 06/06/24 16:47 Primary Care Provider: Canelo Stallworth Admitting Provider: Ruddy Hester Attending physician on admission: Gregory Mcclure Condition: Stable Quality VTE Prophylaxis VTE prophylaxis: mechanical ordered
--- NOTE | 2024-06-08 13:30 | P.PNGI_ITS ---
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 Pelvic MRI revealed small volume ascites and a perirectal lymph node, concerning for metastasis. Chest CT scan did not reveal metastasis. Regardless of the stage, the patient will undergo a rectal stent placement next week at [facility], coordination has been already made. She will need multi disciplinary management, undoubtedly radiation and chemotherapy. She can be safely discharged today on a low-fiber diet. Plan - discharge today - rectal stent to be placed early next week at [facility] Time Spent With Patient Time with patient: less than 15 minutes Subjective Date/time seen: 06/08/24 13:30 Interval history: patient feeling better today. Last evening, after colonoscopy she felt bloated and with bilateral lower quadrant pain. A CT scan of the abdomen without contrast was obtained to rule out pneumoperitoneum, which was absent. Review of Systems Review of Systems: All systems reviewed & are unremarkable except as noted in HPI and below Exam Narrative: Abdomen: Soft, nontender, slightly tympanitic, none distended. No hepatomegaly. Objective Data Vital Signs Vital Signs: Vital Signs - 24 hr 06/07/24 14:00 06/07/24 14:12 06/07/24 14:22 Temperature 97.8 F Pulse Rate 94 98 94 Respiratory Rate 16 18 18 Blood Pressure 131/67 112/59 L 123/78 Pulse Oximetry 98 100 100 Oxygen Delivery Room Air Room Air 06/07/24 14:32 06/07/24 19:52 06/07/24 20:00 Temperature 99.2 F Pulse Rate 92 97 97 Respiratory Rate 18 20 20 Blood Pressure 130/95 H 132/56 L Pulse Oximetry 100 99 99 Oxygen Delivery Room Air Room Air 06/08/24 05:40 Temperature 98.7 F Pulse Rate 100 Respiratory Rate 20 Blood Pressure 126/63 Pulse Oximetry 97 Oxygen Delivery Intake/Output Intake/Output: Intake & Output 06/05/24 06/06/24 06/07/24 06/08/24 23:59 23:59 23:59 23:59 Intake Total 1999 3847.1 1389.6 Balance 1999 3847.1 1389.6 Meds/Results Medications: Active Medications Generic Name Dose Route Start Last Admin Trade Name Freq PRN Reason Stop Dose Admin Acetaminophen 650 mg 06/06/24 16:47 06/07/24 15:00 Acetaminophen 325 Mg Tablet PO 650 mg Q4H PRN Administration Mild Pain (1-3) or Fever Atorvastatin Calcium 10 mg 06/07/24 09:00 06/08/24 11:27 Atorvastatin 10 Mg Tablet PO 10 mg DAILY GRETTA Administration Dicyclomine HCl 10 mg 06/06/24 23:33 06/08/24 11:27 Dicyclomine Hcl 10 Mg Capsule PO 10 mg QID PRN Administration abdominal pain Hydrochlorothiazide 12.5 mg 06/07/24 09:00 06/08/24 11:27 Hydrochlorothiazide 12.5 Mg Capsule PO 12.5 mg QAM GRETTA Administration Lactated Ringer's 1,000 mls @ 125 mls/hr 06/06/24 16:50 06/08/24 05:17 Lr - Lactated Ringers Iv IV CONT 125 mls/hr .Q8H GRETTA Administration Lisinopril 10 mg 06/07/24 09:00 06/08/24 11:27 Lisinopril 10 Mg Tablet PO 10 mg QAM GRETTA Administration Montelukast Sodium 10 mg 06/07/24 18:00 06/07/24 17:11 Montelukast Sodium 10 Mg Tablet PO 10 mg QPM GRETTA Administration Morphine Sulfate 4 mg 06/06/24 16:47 06/07/24 18:42 Morphine Sulfate (*Crx) 4 Mg/Ml Inj IV PUSH 4 mg Q2H PRN Administration Pain Rated 7-10 Ondansetron HCl 4 mg 06/06/24 16:47 Ondansetron Inj 4 Mg/2 Ml Vial IV PUSH Q4H PRN Nausea Potassium Chloride 20 meq 06/07/24 09:00 06/08/24 11:27 Potassium Chloride 20 Meq Er Tablet PO 20 meq BID GRETTA Administration Fluticasone/Salmeterol 2 puff 06/07/24 08:00 06/08/24 10:22 Fluticasone/Salmeterol 115-21 Mcg Inhaler 1 Puff INHALATION Not Given Q12HRT [facility] Radiology Results: ITS Impressions Chest X-Ray 06/06/24 14:34 IMPRESSION: 1. No acute cardiopulmonary disease. Abdomen/Pelvis CT 06/07/24 20:39 IMPRESSION: 1. Thickened wall of the rectosigmoid colon suggestive of colitis. No significant change from previous examination. No evidence of pneumoperitoneum seen. 2. Constipation 3. Bilateral kidney stones. Chest CT 06/07/24 23:18 IMPRESSION: Bilateral basal atelectasis versus pneumonia more on the right side. No definite metastatic lesions seen. Minimal fluid around the spleen. Clinical correlation advised. Pelvis MRI 06/08/24 11:52 IMPRESSION: 1. Rectal mass, consistent with primary malignancy, at least T4a. 2. Enlarged perirectal lymph node, consistent with metastatic disease. 3. Small volume of ascites. 4. Colonic obstruction from the rectal mass. Labs Labs: Laboratory Results - last 24 hr 06/07/24 06/08/24 04:06 07:09 WBC 7.4 RBC 3.60 L Hgb 10.9 L Hct 34.7 L MCV 96.4 MCH 30.3 MCHC 31.4 L RDW 12.6 Plt Count 378 H MPV 9.0 Immature Gran % (Auto) 0.3 Neut % (Auto) 66.7 Lymph % (Auto) 16.3 L [place] % (Auto) 13.6 H Eos % (Auto) 2.4 Baso % (Auto) 0.7 Lymph # (Auto) 1.20 [place] # (Auto) 1.0 H Eos # (Auto) 0.2 Baso # (Auto) 0.1 Abs Immat Gran (auto) 0.02 Absolute Neuts (auto) 4.9 Absolute Nucleated RBC 0.000 Nucleated RBC % 0.0 Sodium 138 Potassium 3.6 Chloride 104 Carbon Dioxide 27 Anion Gap 7 BUN 12 D Creatinine 0.81 Estim Creat Clear Calc 49 Estimated GFR > 60 Glucose 109 Calcium 8.5 Total Bilirubin 0.9 AST 23 ALT 16 Alkaline Phosphatase 80 Total Protein 6.0 L Albumin 3.3 L Carcinoembryonic Ag 31.2 H
--- NOTE | 2024-06-08 16:31 | WPDANESPN ---
Anes - Prog Note Post-Op Date/Time: 06/08/24 16:31 Cardiovascular status: normal Respiratory status: normal Airway patency: baseline Mental status: baseline Post-Op hydration status: normal Vital Signs: Last Vital Signs Temp 37.1 C 06/08/24 05:40 Pulse 100 06/08/24 05:40 Resp 20 06/08/24 05:40 BP 126/63 06/08/24 05:40 Pulse Ox 97 06/08/24 05:40 O2 Del Method Room Air 06/08/24 08:00 Pain Score (VAS): 2 I/O: Intake & Output 06/08/24 06/08/24 06/08/24 07:59 15:59 23:59 Intake Total 1389.6 0 Balance 1389.6 0 Laboratory Tests 06/08/24 07:09 06/08/24 07:09 06/07/24 06/08/24 04:06 07:09 WBC 7.4 RBC 3.60 L Hgb 10.9 L Hct 34.7 L MCV 96.4 MCH 30.3 MCHC 31.4 L RDW 12.6 Plt Count 378 H MPV 9.0 Immature Gran % (Auto) 0.3 Neut % (Auto) 66.7 Lymph % (Auto) 16.3 L [place] % (Auto) 13.6 H Eos % (Auto) 2.4 Baso % (Auto) 0.7 Lymph # (Auto) 1.20 [place] # (Auto) 1.0 H Eos # (Auto) 0.2 Baso # (Auto) 0.1 Abs Immat Gran (auto) 0.02 Absolute Neuts (auto) 4.9 Absolute Nucleated RBC 0.000 Nucleated RBC % 0.0 Sodium 138 Potassium 3.6 Chloride 104 Carbon Dioxide 27 Anion Gap 7 BUN 12 D Creatinine 0.81 Estim Creat Clear Calc 49 Estimated GFR > 60 Glucose 109 Calcium 8.5 Total Bilirubin 0.9 AST 23 ALT 16 Alkaline Phosphatase 80 Total Protein 6.0 L Albumin 3.3 L Carcinoembryonic Ag 31.2 H Post-procedural complaints: none Patient Feedback: Patient satisfied with anesthetic care.
--- NOTE | 2024-06-10 07:09 | P.CDI_ITS ---
CDI Query Clarification Request BMI: 22.5 Nutritional Diagnostic Statement: Please refer to the comprehensive nutrition assessment for further information. If you agree with diagnosis of Severe protein calorie malnutrition related to chronic diarrhea as evidenced by weight loss -12%/6 months; inadequate intake <75% needs >1 month; moderate muscle wasting and fat loss. Please specify severity if known: * Mild * Moderate * Severe * Other/Unknown <Usha Alexandra RN - Last Filed: 06/10/24 07:09> Clarified Diagnosis Clarified Diagnosis: Severe protein calorie malnutrition Appreciate Dietary recommendations <Gregory Mcclure PA-C - Last Filed: 06/10/24 13:02>
== END 2024-06-08 14:20 | disposition home or self-care (01) | DRG 374 ==
LOC: ANHED 15:28 → ANH2MED 17:18
PROVIDERS: Internal Medicine Gastroenterology; Student in an Organized Health Care Education/Training Program; Admitting Provider General Practice; Emergency Provider Student in an Organized Health Care Education/Training Program; PCP Emergency Medicine; Visit Provider Physician Assistant
PROC: 0DJD8ZZ Inspection of Lower Intestinal Tract, Via Natural or Artificial Opening Endoscopic (ICD-10-PCS; CPT 45378; principal; 2024-06-07 14:00)
DX: C20 Malignant neoplasm of rectum (principal); E43 Unspecified severe protein-calorie malnutrition; K52.9 Noninfective gastroenteritis and colitis, unspecified; E86.0 Dehydration; I10 Essential (primary) hypertension; J45.909 Unspecified asthma, uncomplicated; E55.9 Vitamin D deficiency, unspecified; Z79.899 Other long term (current) drug therapy; Z86.0101 Personal history of adenomatous and serrated colon polyps
CPT/HCPCS: 36415; 71046; 71260; 72197; 74176; 74177; 80053; 81001; 82378; 83605; 85025; 88305; 88342; 93005; 94640; 96361; 96374; 96375; 96376; 99285; A9270; A9579; J2003; J2270; J2371; J2405; J2704; J7120; Q9967